=== PATIENT | male | born 1960 | race African-American/Black ===

== ENCOUNTER 2017-08-09 02:49 | Inpatient (IN) | payer BC, MEDICARE ==
[~2017-08-09] VITALS: Ht 175.3 cm; Wt 84.7 kg
[2017-08-09] VITALS (7 sets, daily range): BP systolic 124–151; BP diastolic 71–81; PULSE 68–91; RESP 12–18; TEMP 97.8–98.6; O2SAT 97–99
[2017-08-09] MEDS ORDERED: RENATAB6 PO (04:00)
[2017-08-09] MEDS ORDERED: LEVO50TA4 PO (04:00)
[2017-08-09] MEDS ORDERED: ATOR10TA15 PO (04:00)
[2017-08-09] MEDS ORDERED: SODIUM CHLOR 0.9% 1000 ML INJ 1,000 ML IV ONE (04:10)
[2017-08-09 04:39] LABS: AUTOMATED NEUTROPHIL # 3.1 TH/MM3 (1.8-7.7); BASOPHIL % 0.6 % (0.0-2.0); EOSINOPHIL # 0.4 TH/MM3 (0-0.4); EOSINOPHIL % 5.9 % (0.0-4.0); HEMATOCRIT 33.5 % (39.0-51.0); HEMOGLOBIN 11.1 GM/DL (13.0-17.0); LYMPH % 35.4 % (9.0-44.0); LYMPHOCYTE # 2.2 TH/MM3 (1.0-4.8); MEAN CELL VOLUME 91.1 FL (80.0-100.0); MEAN CORPUSCULAR HEMOGLOBIN 30.2 PG (27.0-34.0); MEAN CORPUSCULAR HGB CONC 33.1 % (32.0-36.0); MEAN PLATELET VOLUME 7.8 FL (7.0-11.0); MONO % 7.9 % (0.0-8.0); MONOCYTE # 0.5 TH/MM3 (0-0.9); NEUT % 50.2 % (16.0-70.0); PLATELET COUNT 174 TH/MM3 (150-450); RED BLOOD COUNT 3.68 MIL/MM3 (4.50-5.90); RED CELL DISTRIBUTION WIDTH 16.5 % (11.6-17.2); WHITE BLOOD COUNT 6.1 TH/MM3 (4.0-11.0)
[2017-08-09 04:53] LABS: PROTHROMBIN TIME - PATIENT 10.6 SEC (9.8-11.6)
--- NOTE | 2017-08-09 04:57 | HHI.HP ---
HPI Service [facility] Hospitalists . Primary Care Physician Non-Staff . Admission Diagnosis ESRD/Renal Transplant . Diagnoses: (1) ESRD (end stage renal disease) on dialysis Chief Complaint: ESRD - here for kidney transplant Travel History International Travel<30 Days: No Contact w/Intl Traveler <30 Da: No History of Present Illness Mr. Posadas is a 56 year-old male with a history of ESRD secondary to sequential bilateral nephrectomy due to renal cell carcinoma, previous history of hypertension, secondary hyperparathyroidism, hypothyroidism following partial thyroidectomy for benign thyroid nodule, history of colon polyps, and hyperlipidemia who presents to [facility] for possible renal transplantation by Dr. Sheriff. The patient is seen in his hospital room with his at the bedside. He denies any pain, chest pain, shortness of breath, fevers, chills, nausea, vomiting, or diarrhea. He is eagerly awaiting news of whether or not the transplantation is going to proceed. Review of Systems Except as stated in HPI: all other systems reviewed are Neg Past Family Social History Past Medical History End-stage renal disease Renal cell carcinoma Hypertension history -takes no medications for this and states that his hypertension resolved after starting dialysis Secondary hyperparathyroidism Hypothyroidism History of colon polyps with clean colonoscopy 1-2 years ago Hyperlipidemia . Past Surgical History Sequential bilateral nephrectomies -first in January 2016 and then the second one was in July 2016 Vasectomy AV fistula left arm Umbilical hernia repair as a child Inguinal hernia repair as a teen Partial thyroidectomy for benign thyroid nodule Peritoneal catheter placed in 2015 and also removed in 2016 secondary to infection . Reported Medications Reported Meds & Active Scripts Active Reported Levothyroxine (Levothyroxine Sodium) 50 Mcg Tab 50 Mcg PO DAILY Vanita-Lam Rx (B-Complex W/ C & Folic Acid) 1 Tab 1 Tab PO DAILY Atorvastatin (Atorvastatin Calcium) 10 Mg Tab 10 Mg PO HS . Allergies: Coded Allergies: No Known Allergies (Unverified , 07/30/17) Family History Denies family history of renal disease Father age 75 with prostate cancer Paternal grandmother with colon cancer Maternal grandmother with cancer of unknown etiology, in her 90s . Social History Tobacco: Denies ever smoking Alcohol: Denies Illicit Drugs: Denies . Physical Exam Vital Signs Vital Signs Date Time Temp Pulse Resp B/P (MAP) Pulse Ox O2 Delivery O2 Flow Rate FiO2 08/09/17 04:00 98.6 71 16 124/73 (90) 98 Physical Exam GENERAL: This is a very pleasant, well-nourished, well-developed patient, in no apparent distress. SKIN: No rashes, ecchymoses or lesions. Cool and dry. HEAD: Atraumatic. Normocephalic. EYES: No scleral icterus. No injection or drainage. ENT: Nose without bleeding, purulent drainage. NECK: Trachea midline. No JVD or lymphadenopathy. CARDIOVASCULAR: Regular rate and rhythm without murmurs, gallops, or rubs. Left AV fistula with positive bruit and thrill. RESPIRATORY: Clear to auscultation. Breath sounds equal bilaterally. No wheezes , rales, or rhonchi. GASTROINTESTINAL: Abdomen soft, non-tender, nondistended. No guarding. MUSCULOSKELETAL: Extremities without clubbing, cyanosis, or edema. No calf tenderness. NEUROLOGICAL: Awake and alert. Motor and sensory grossly within normal limits. Normal speech. . Laboratory Laboratory Tests Test 08/09/17 04:20 White Blood Count 6.1 Red Blood Count 3.68 Hemoglobin 11.1 Hematocrit 33.5 Mean Corpuscular Volume 91.1 Mean Corpuscular Hemoglobin 30.2 Mean Corpuscular Hemoglobin Concent 33.1 Red Cell Distribution Width 16.5 Platelet Count 174 Mean Platelet Volume 7.8 Neutrophils (%) (Auto) 50.2 Lymphocytes (%) (Auto) 35.4 Monocytes (%) (Auto) 7.9 Eosinophils (%) (Auto) 5.9 Basophils (%) (Auto) 0.6 Neutrophils # (Auto) 3.1 Lymphocytes # (Auto) 2.2 Monocytes # (Auto) 0.5 Eosinophils # (Auto) 0.4 Basophils # (Auto) 0.0 CBC Comment DIFF FINAL Differential Comment Prothrombin Time 10.6 Prothromb Time International Ratio 1.0 Activated Partial Thromboplast Time 24.9 Result Diagram: 08/09/17 0310 Caprini VTE Risk Assessment Caprini VTE Risk Assessment: Mod/High Risk (score >= 2) Caprini Risk Assessment Model Point Value = 1 Point Value = 2 Point Value = 3 Point Value = 5 Age 41-60 Minor surgery BMI > 25 kg/m2 Swollen legs Varicose veins or History of unexplained or recurrent spontaneous Oral contraceptives or hormone replacement Sepsis (< 1 month) Serious lung disease, including pneumonia (< 1 month) Abnormal pulmonary function Acute myocardial infarction Congestive heart failure (< 1 month) History of inflammatory bowel disease Medical patient at bed rest Age 61-74 Arthroscopic surgery Major open surgery (> 45 min) Laparoscopic surgery (> 45 min) Malignancy Confined to bed (> 72 hours) Immobilizing plaster cast Central venous access Age >= 75 History of VTE Family history of VTE Factor V Leiden Prothrombin [id number] Lupus anticoagulant Anticardiolipin antibodies Elevated serum homocysteine Heparin-induced thrombocytopenia Other congenital or acquired thrombophilia Stroke (< 1 month) Elective arthroplasty Hip, pelvis, or leg fracture Acute spinal cord injury (< 1 month) Prophylaxis Regimen Total Risk Factor Score Risk Level Prophylaxis Regimen 0-1 Low Early ambulation 2 Moderate Order ONE of the following: *Sequential Compression Device (SCD) *Heparin 5000 units SQ BID 3-4 Higher Order ONE of the following medications: *Heparin 5000 units SQ TID *Enoxaparin/Lovenox 40 mg SQ daily (WT < 150 kg, CrCl > 30 mL/min) *Enoxaparin/Lovenox 30 mg SQ daily (WT < 150 kg, CrCl > 10-29 mL/min) *Enoxaparin/Lovenox 30 mg SQ BID (WT < 150 kg, CrCl > 30 mL/min) AND/OR *Sequential Compression Device (SCD) 5 or more Highest Order ONE of the following medications: *Heparin 5000 units SQ TID (Preferred with Epidurals) *Enoxaparin/Lovenox 40 mg SQ daily (WT < 150 kg, CrCl > 30 mL/min) *Enoxaparin/Lovenox 30 mg SQ daily (WT < 150 kg, CrCl > 10-29 mL/min) *Enoxaparin/Lovenox 30 mg SQ BID (WT < 150 kg, CrCl > 30 mL/min) AND *Sequential Compression Device (SCD) Assessment and Plan Problem List: (1) ESRD (end stage renal disease) on dialysis ICD Code: N18.6 - End stage renal disease; Z99.2 - Dependence on renal dialysis Assessment and Plan Mr. Posadas is a 56 year-old male with a history of ESRD secondary to sequential bilateral nephrectomy due to renal cell carcinoma, previous history of hypertension, secondary hyperparathyroidism, hypothyroidism following partial thyroidectomy for benign thyroid nodule, history of colon polyps, and hyperlipidemia who presents to [facility] for possible renal transplantation by Dr. Sheriff. ESRD here for possible renal transplant - Dr. Sheriff to manage renal transplant - patient receives hemodialysis [id number] - is due today for HD - consult nephrology - Dr. Verdugo hypothyroidism - continue home Synthroid hyperlipidemia - continue home atorvastatin DVT prophylaxis - SCDs/TEDs - chemoprophylaxis contraindicated pre-operatively Discussed Condition With Patient, RN, and Dr. Schwab . Physician Certification 2 Midnight Certification Type: Admission for Inpatient Services Order for Inpatient Services The services are ordered in accordance with Medicare regulations or non- Medicare payer requirements, as applicable. In the case of services not specified as inpatient-only, they are appropriately provided as inpatient services in accordance with the 2-midnight benchmark. Estimated LOS (days): 4 days is the estimated time the patient will need to remain in the hospital, assuming treatment plan goals are met and no additional complications. Post-Hospital Plan: Not yet determined Angelita Bobo Aug 09, 2017 04:57
[2017-08-09 05:13] LABS: ALT (GPT) 12 U/L (12-78)
[2017-08-09 05:14] LABS: ALBUMIN 3.4 GM/DL (3.4-5.0); AST (GOT) 15 U/L (15-37); BICARBONATE 29.8 MEQ/L (21.0-32.0); BLOOD UREA NITROGEN 73 MG/DL (7-18); CHLORIDE 97 MEQ/L (98-107); GLOMERULAR FILTRATION RATE 4 ML/MIN (>89); GLUCOSE,RANDOM 86 MG/DL (74-106); SODIUM (NA) 140 MEQ/L (136-145)
[2017-08-09 05:15] LABS: ALKALINE PHOSPHATASE 56 U/L (45-117); TOTAL BILIRUBIN ADULT 0.4 MG/DL (0.2-1.0); TOTAL PROTEIN 7.7 GM/DL (6.4-8.2)
[2017-08-09] MEDS: LEVOTHYROXINE SODIUM 50 MCG TAB PO SCH (06:27)
[2017-08-09] MEDS ORDERED: GENTAMICIN SULFATE 80 MG/2 ML VIAL ONE (07:59)
--- NOTE | 2017-08-09 08:57 | PD.CONS ---
History of Present Illness Service Transplant surgery Consult Requested By Angelita JERONIMO Reason for Consult Admit for possible donor renal transplant Primary Care Physician Non-Staff Diagnoses: History of Present Illness Patient with ESRD. S/p bnilateral nephrectomies due to cancer. Review of Systems Except as stated in HPI: all other systems reviewed are Neg Anuric Past Family Social History Allergies: Coded Allergies: No Known Allergies (Unverified , 07/30/17) Past Medical History sequential bilateral renal cancer. ESRD. hypothyroid. secondary hyperparathyroid. colon polyps. hyperlipidemia. Past Surgical History Right nephrectomy. Left nephrectomy. Right inguinal hernia repair as a child. partial thyroidectomy. Family History father=prostate cance. paternal grandmother-colon cancer. Maternal grandmother- cancer (type unknown) Social History No tob, occ etoh, no illicit drugs. Physical Exam Vital Signs Vital Signs Date Time Temp Pulse Resp B/P (MAP) Pulse Ox O2 Delivery O2 Flow Rate FiO2 08/09/17 04:00 98.6 71 16 124/73 (90) 98 08/09/17 04:00 68 Physical Exam GENERAL: This is a well-nourished, well-developed patient, in no apparent distress. SKIN: No rashes, ecchymoses or lesions. Cool and dry. HEAD: Atraumatic. Normocephalic. No temporal or scalp tenderness. EYES: Pupils equal round and reactive. Extraocular motions intact. No scleral icterus. No injection or drainage. ENT: Nose without bleeding, purulent drainage or septal hematoma. Throat without erythema, tonsillar hypertrophy or exudate. Uvula midline. Airway patent. NECK: Trachea midline. No JVD or lymphadenopathy. Supple, nontender, no meningeal signs. CARDIOVASCULAR: Regular rate and rhythm without murmurs, gallops, or rubs. No carotid bruits. RESPIRATORY: Clear to auscultation. Breath sounds equal bilaterally. No wheezes , rales, or rhonchi. GASTROINTESTINAL: Abdomen soft, non-tender, nondistended. No hepato-splenomegaly , or palpable masses. No guarding. MUSCULOSKELETAL: Extremities without clubbing, cyanosis, or edema. No joint tenderness, effusion, or edema noted. No calf tenderness. Negative Homans sign bilaterally. Left arm AVF. Palppable fem/ DP/PT pulses NEUROLOGICAL: Awake and alert. Cranial nerves II through XII intact. Motor and sensory grossly within normal limits. Five out of 5 muscle strength in all muscle groups. Normal speech. Laboratory Laboratory Tests Test 08/09/17 04:20 White Blood Count 6.1 Red Blood Count 3.68 Hemoglobin 11.1 Hematocrit 33.5 Mean Corpuscular Volume 91.1 Mean Corpuscular Hemoglobin 30.2 Mean Corpuscular Hemoglobin Concent 33.1 Red Cell Distribution Width 16.5 Platelet Count 174 Mean Platelet Volume 7.8 Neutrophils (%) (Auto) 50.2 Lymphocytes (%) (Auto) 35.4 Monocytes (%) (Auto) 7.9 Eosinophils (%) (Auto) 5.9 Basophils (%) (Auto) 0.6 Neutrophils # (Auto) 3.1 Lymphocytes # (Auto) 2.2 Monocytes # (Auto) 0.5 Eosinophils # (Auto) 0.4 Basophils # (Auto) 0.0 CBC Comment DIFF FINAL Differential Comment Prothrombin Time 10.6 Prothromb Time International Ratio 1.0 Activated Partial Thromboplast Time 24.9 Blood Urea Nitrogen 73 Creatinine 16.90 Random Glucose 86 Total Protein 7.7 Albumin 3.4 Calcium Level 9.0 Alkaline Phosphatase 56 Aspartate Amino Transf (AST/SGOT) 15 Alanine Aminotransferase (ALT/SGPT) 12 Total Bilirubin 0.4 Sodium Level 140 Potassium Level 5.1 Chloride Level 97 Carbon Dioxide Level 29.8 Anion Gap 13 Estimat Glomerular Filtration Rate 4 Result Diagram: 08/09/1741908/09/17419 Assessment and Plan Problem List: (1) ESRD (end stage renal disease) on dialysis ICD Codes: N18.6 - End stage renal disease; Z99.2 - Dependence on renal dialysis (2) CKD stage 5 secondary to hypertension ICD Codes: I12.0 - Hypertensive chronic kidney disease with stage 5 chronic kidney disease or end stage renal disease; N18.5 - Chronic kidney disease, stage 5 Assessment and Plan CMV+/ EBV+ patient with ESRD due to hypertension. S/p bilateral nephrectomies. Anuric since 2016. Presents for possible donor renal transplant from a DCD donor. Joe Sheriff Jr., MD Aug 09, 2017 08:57
[2017-08-09] MEDS ORDERED: methylPREDNISolone SO SUCC INJ 500 MG in SODIUM CHLORIDE 0.9% INJ 100 ML IV ONE (09:00)
[2017-08-09] MEDS ORDERED: MYCOPHENOLATE MOFETIL 500 MG TAB PO SCH (09:00)
[2017-08-09] MEDS ORDERED: ceFAZolin 2 GM PREMIX 50 ML IV SCH (09:00)
[2017-08-09] MEDS ORDERED: [UNRECOGNIZED DRUG - OTHER] XX PRN (09:15)
--- NOTE | 2017-08-09 09:57 | RADRPT ---
EXAM DATE: 08/09/2017 9:29 AM EDT AGE/SEX: 56 years / Male INDICATIONS: Evaluate for pneumonia, pneumothorax, or any communicable disease. Pre op kidney transp lant. CLINICAL DATA: This is the patient's initial encounter. Patient reports that signs and symptoms have been present for 1 day and indicates a pain score of 0/10. MEDICAL/SURGICAL HISTORY: Renal disease. None. COMPARISON: No prior exams available for comparison. FINDINGS: PA and lateral views of the chest demonstrate the lungs to be symmetrically aerated without evidence of mass, infiltrate or effusion. The cardiomediastinal contours are unremarkable. Osseous structures are intact. CONCLUSION: Negative examination. Electronically signed by: Robert Peguero MD 08/09/2017 9:56 AM EDT
--- NOTE | 2017-08-09 10:14 | PD.CONS ---
HPI Service Nephrology Consult Requested By Dr. Sheriff Reason for Consult ESRD for kidney transplant Primary Care Physician Non-Staff History of Present Illness Patient is a 56-year-old -[place] male history of renal cell cancer status post bilateral nephrectomy, here for kidney transplant, patient was evaluated and was placed on the waiting list, he had his dialysis done last Sunday, he does not gain too much weight and he said on average ultrafiltration is about 2.3-2.5, denies any shortness of breath, any nausea or vomiting, any diarrhea, any cough is feeling fine. Review of Systems Constitutional: DENIES: Diaphoretic episodes, Fatigue, Fever, Weight gain, Weight loss, Chills, Dizziness, Change in appetite, Night Sweats Endocrine: DENIES: Heat/cold intolerance, Polydipsia, Polyuria, Polyphagia Eyes: DENIES: Blurred vision, Diplopia, Eye inflammation, Eye pain, Vision loss , Photosensitivity, Double Vision Ears, nose, mouth, throat: DENIES: Tinnitus, Hearing loss, Vertigo, Nasal discharge, Oral lesions, Throat pain, Hoarseness, Ear Pain, Running Nose, Epistaxis, Sinus Pain, Toothache, Odynophagia Respiratory: DENIES: Apneas, Cough, Snoring, Wheezing, Hemoptysis, Sputum production, Shortness of breath Cardiovascular: DENIES: Chest pain, Palpitations, Syncope, Dyspnea on Exertion , PND, Lower Extremity Edema, Orthopnea, Claudication Gastrointestinal: DENIES: Abdominal pain, Black stools, Bloody stools, Constipation, Diarrhea, Nausea, Vomiting, Difficulty Swallowing, Anorexia Genitourinary: COMPLAINS OF: Urinary frequency (anuria) Musculoskeletal: DENIES: Joint pain, Muscle aches, Stiffness, Joint Swelling, Back pain, Neck pain Integumentary: DENIES: Abnormal pigmentation, Nail changes, Pruritus, Rash Hematologic/lymphatic: DENIES: Bruising, Lymphadenopathy Immunologic/allergic: DENIES: Eczema, Urticaria Neurologic: DENIES: Abnormal gait, Headache, Localized weakness, Paresthesias, Seizures, Speech Problems, Tremor, Poor Balance Psychiatric: DENIES: Anxiety, Confusion, Mood changes, Depression, Hallucinations, Agitation, Suicidal Ideation, Homicidal Ideation, Delusions Past Family Social History Allergies: Coded Allergies: No Known Allergies (Unverified , 07/30/17) Past Medical History Renal cell cancer status post bilateral nephrectomy Hypertension Anemia Polyps in colon Hypothyroid Hyperparathyroidism Past Surgical History Bilateral nephrectomy AV fistula Right inguinal hernia repair Partial thyroidectomy Reported Medications Reported Meds & Active Scripts Active Reported Levothyroxine (Levothyroxine Sodium) 50 Mcg Tab 50 Mcg PO DAILY Vanita-Lam Rx (B-Complex W/ C & Folic Acid) 1 Tab 1 Tab PO DAILY Atorvastatin (Atorvastatin Calcium) 10 Mg Tab 10 Mg PO HS Active Ordered Medications Current Medications Medications (Trade) Dose Ordered Sig/Errol Route Start Time Stop Time Status Last Admin Sodium Chloride 1,000 ml @ 40 mls/hr Q24H ONCE IV 08/09/17 04:10 08/10/17 04:09 (Lipitor) 10 mg HS PO 08/09/17 21:00 (Synthroid) 50 mcg DAILY@0600 PO 08/09/17 06:00 08/09/17 06:27 Cefazolin Sodium/ Dextrose 50 ml @ 100 mls/hr [employer]ING [employer]OV[employer] TE[employer]ER IV 08/09/17 09:00 08/13/17 08:59 Anti-Thymocyte Globulin (Rabbit) 105 mg/Sodium Chloride 500 ml @ 83.333 mls/ hr ONCE ONCE IV-CENTRAL 08/09/17 12:00 08/09/17 17:59 (StyleTechc Thymoglobulin Anapylaxis Kit) 1 UNSCH PRN XX 08/09/17 09:15 Family History Father history of prostate cancer Social History Denies smoking or alcohol use Physical Exam Vital Signs Vital Signs Date Time Temp Pulse Resp B/P (MAP) Pulse Ox O2 Delivery O2 Flow Rate FiO2 08/09/17 09:10 97.8 73 18 140/76 (97) 97 08/09/17 04:00 98.6 71 16 124/73 (90) 98 08/09/17 04:00 68 Physical Exam GENERAL: Well-nourished, well-developed patient. SKIN: Warm and dry. HEAD: Normocephalic. EYES: No scleral icterus. No injection or drainage. NECK: Supple, trachea midline. No JVD or lymphadenopathy. CARDIOVASCULAR: Regular rate and rhythm without murmurs, gallops, or rubs. RESPIRATORY: Breath sounds equal bilaterally. No accessory muscle use. GASTROINTESTINAL: Abdomen soft, non-tender, nondistended. EXTREMITIES: No cyanosis, or edema. NEUROLOGICAL: Awake, alert, and oriented x 3. Non-focal. Laboratory Laboratory Tests Test 08/09/17 04:20 White Blood Count 6.1 Red Blood Count 3.68 Hemoglobin 11.1 Hematocrit 33.5 Mean Corpuscular Volume 91.1 Mean Corpuscular Hemoglobin 30.2 Mean Corpuscular Hemoglobin Concent 33.1 Red Cell Distribution Width 16.5 Platelet Count 174 Mean Platelet Volume 7.8 Neutrophils (%) (Auto) 50.2 Lymphocytes (%) (Auto) 35.4 Monocytes (%) (Auto) 7.9 Eosinophils (%) (Auto) 5.9 Basophils (%) (Auto) 0.6 Neutrophils # (Auto) 3.1 Lymphocytes # (Auto) 2.2 Monocytes # (Auto) 0.5 Eosinophils # (Auto) 0.4 Basophils # (Auto) 0.0 CBC Comment DIFF FINAL Differential Comment Prothrombin Time 10.6 Prothromb Time International Ratio 1.0 Activated Partial Thromboplast Time 24.9 Blood Urea Nitrogen 73 Creatinine 16.90 Random Glucose 86 Total Protein 7.7 Albumin 3.4 Calcium Level 9.0 Alkaline Phosphatase 56 Aspartate Amino Transf (AST/SGOT) 15 Alanine Aminotransferase (ALT/SGPT) 12 Total Bilirubin 0.4 Sodium Level 140 Potassium Level 5.1 Chloride Level 97 Carbon Dioxide Level 29.8 Anion Gap 13 Estimat Glomerular Filtration Rate 4 Result Diagram: 08/09/17 0420 08/09/17 0420 Imaging Last Impressions Chest X-Ray 08/09/17 0000 Signed Impressions: CONCLUSION: Negative examination. Assessment and Plan Problem List: (1) ESRD (end stage renal disease) on dialysis ICD Codes: N18.6 - End stage renal disease; Z99.2 - Dependence on renal dialysis Plan: Patient has been cleared to get kidney transplant, electrolytes were reviewed and discussed with Dr. Sheriff, he has kidney available and is going to OR shortly We will continue to monitor him postoperatively He will received Thymoglobulin induction. Liya Verdugo MD Aug 09, 2017 10:14
[2017-08-09] MEDS ORDERED: HEPARIN SODIUM - IV 10,000 UNITS/10 ML VIAL ONE (10:56)
[2017-08-09] MEDS ORDERED: fentaNYL CITRATE 250 MCG/5 ML AMP ONE ×2 (11:39→14:33)
[2017-08-09] MEDS ORDERED: CISATRACURIUM BESYLATE 20 MG/10 ML VIAL ONE (11:49)
[2017-08-09] MEDS ORDERED: PROPOFOL 200 MG/20 ML AMP IV ONE (12:00)
[2017-08-09] MEDS ORDERED: SODIUM CHLORID 0.9% IV-CENTRAL ONE (12:00)
[2017-08-09] MEDS ORDERED: LIDOCAINE HCL 1% PF 5 ML SYRINGE OTHER ONE (12:00)
[2017-08-09] MEDS ORDERED: NEOSTIGMINE 5 MG/5 ML SYRINGE IV PUSH ONE (12:00)
[2017-08-09] MEDS ORDERED: ONDANSETRON HCL 4 MG/2 ML VIAL IV PUSH ONE (12:00)
[2017-08-09] MEDS ORDERED: ANTITHYMOCYTE GLOB IV-CENTRAL ONE (12:00)
[2017-08-09] MEDS ORDERED: GLYCOPYRROLATE 1 MG/5 ML SYRINGE IV PUSH ONE (12:00)
[2017-08-09] MEDS ORDERED: ePHEDrine/NS 25 MG/5 ML SYRINGE IV ONE (12:00)
[2017-08-09] MEDS ORDERED: PHENYLEPH/NS 1000 MCG/10 ML SYR IV ONE (12:00)
[2017-08-09] MEDS ORDERED: LACTATED RINGER'S 1000 ML IV PRN (12:30)
[2017-08-09] MEDS ORDERED: METOPROLOL TARTRATE 25 MG TAB PO PRN (12:30)
[2017-08-09] MEDS ORDERED: CHLORHEXIDINE GLUCONATE 2 % 1 PACK (2 CLOTHS) TOPICAL PRN (12:30)
[2017-08-09] MEDS ORDERED: POVIDONE IODINE 5% (ANTISEPSIS KIT) 4 APPLICATIONS EACH NARE PRN (12:30)
[2017-08-09] MEDS ORDERED: SODIUM CHLORID 0.9% 500 ML IV PRN (12:30)
[2017-08-09] MEDS ORDERED: FUROSEMIDE 20 MG/2 ML VIAL ONE (13:06)
[2017-08-09] MEDS ORDERED: MANNITOL INJ 50 ML ONE (13:07)
--- NOTE | 2017-08-09 14:41 | PD.OP ---
kidney transplant assist note Operative Report Date of Surgery: Aug 09, 2017 Preoperative Diagnosis: ESRD Postoperative Diagnosis: same Procedure: kidney transplantation Surgeon: Hockey Scout(s): Basil Dennison Operation and Findings: I assisted Dr. Sheriff in the implantation of the kidney allograft. My assistance included exposure of iliac vessels, vascular anastomoses of artery and vein, and implantation of ureteroneocystotomy. The details will be dictated by Dr. Sheriff. Basil Dennison MD Aug 09, 2017 14:41
[2017-08-09] MEDS ORDERED: SODIUM CHLOR 0.45% 1000 ML INJ 1,000 ML IV SCH (14:46)
[2017-08-09] MEDS ORDERED: RESP: ALBUTEROL 2.5 MG/IPRATROPIUM 0.5 MG NEB (PRN) INH (15:00)
[2017-08-09] MEDS ORDERED: diphenhydrAMINE HCL 50 MG/ML VIAL IV PUSH PRN (15:00)
[2017-08-09] MEDS ORDERED: oxyCODONE/ACETAMINOPHEN 5 MG/325 MG TAB PO PRN (15:00)
[2017-08-09] MEDS ORDERED: oxyCODONE/ACETAMINOPHEN 10 MG/325 MG TAB PO PRN (15:00)
[2017-08-09] MEDS ORDERED: NALOXONE HCL 0.4 MG/ML AMP IV PUSH PRN (15:00)
[2017-08-09] MEDS ORDERED: MORPHINE SULFATE 30 MG/30 ML PCA IV SCH (15:00)
[2017-08-09] MEDS ORDERED: diphenhydrAMINE HCL 25 MG CAP PO PRN (15:00)
[2017-08-09] MEDS: DEXT 5%-NACL 0.45% 1000 ML INJ 1,000 ML IV SCH ×2 (15:15→15:45)
[2017-08-09] MEDS ORDERED: DO NOT ADM ANY ANTICOAGULANT DRUGS PRN (15:15)
--- NOTE | 2017-08-09 15:38 | RADRPT ---
EXAM DATE: 08/09/2017 3:33 PM EDT AGE/SEX: 56 years / Male INDICATIONS: Central line placement. CLINICAL DATA: This is the patient's initial encounter. Patient reports that signs and symptoms have been present for 1 day and indicates a pain score of Nonresponsive. MEDICAL/SURGICAL HISTORY: . Renal disease. None. COMPARISON: No prior exams available for comparison. FINDINGS: Single view chest demonstrates the cardiac and mediastinal contours to be within normal limits. There is a right IJ central line in good position. The lungs are clear. The bony structures are intact. CONCLUSION: Central line good position. No pneumothorax identified. Electronically signed by: Corky Brooke MD 08/09/2017 3:37 PM EDT
[2017-08-09 15:50] LABS: AUTOMATED NEUTROPHIL # 9.1 TH/MM3 (1.8-7.7); BASOPHIL % 0.3 % (0.0-2.0); EOSINOPHIL % 0.3 % (0.0-4.0); HEMATOCRIT 25.4 % (39.0-51.0); HEMOGLOBIN 8.4 GM/DL (13.0-17.0); LYMPH % 0.3 % (9.0-44.0); MEAN CELL VOLUME 91.3 FL (80.0-100.0); MEAN CORPUSCULAR HEMOGLOBIN 30.1 PG (27.0-34.0); MEAN CORPUSCULAR HGB CONC 32.9 % (32.0-36.0); MEAN PLATELET VOLUME 7.9 FL (7.0-11.0); MONO % 0.9 % (0.0-8.0); MONOCYTE # 0.1 TH/MM3 (0-0.9); NEUT % 98.2 % (16.0-70.0); PLATELET COUNT 135 TH/MM3 (150-450); RED BLOOD COUNT 2.78 MIL/MM3 (4.50-5.90); RED CELL DISTRIBUTION WIDTH 16.1 % (11.6-17.2); WHITE BLOOD COUNT 9.3 TH/MM3 (4.0-11.0)
[2017-08-09] MEDS ORDERED: ALBUMIN 5% INJ 250 ML IV ONE (16:00)
[2017-08-09] MEDS ORDERED: ONDANSETRON INJ 8 MG in DEXTROSE 5% IN WATER INJ 50 ML IV PRN ×2 (16:00)
[2017-08-09] MEDS ORDERED: ONDANSETRON ODT 4 MG TAB PO PRN (16:00)
[2017-08-09] MEDS ORDERED: PROCHLORPERAZINE INJ 10 MG/2 ML VIAL IV PRN (16:15)
[2017-08-09 16:36] LABS: BICARBONATE 19.6 MEQ/L (21.0-32.0); CALCIUM 6.2 MG/DL (8.5-10.1); MAGNESIUM 1.6 MG/DL (1.5-2.5); PHOSPHORUS 2.2 MG/DL (2.5-4.9)
--- NOTE | 2017-08-09 16:37 | RADRPT ---
EXAM DATE: 08/09/2017 4:02 PM EDT AGE/SEX: 56 years / Male INDICATIONS: Post-op evaluation of transplanted kidney. CLINICAL DATA: This is the patient's initial encounter. Patient reports that signs and symptoms have been present for 1 day and indicates a pain score of 0/10. MEDICAL/SURGICAL HISTORY: Hypertension. Renal cell carcinoma. End stage renal disease.Hyperpara thyroidism. Hypothyroidism. Inguinal hernia repair. Bilateral nephrectomy. Renal transplant. Umbilic al hernia repair.Vasectomy.AV fistula left arm.Umbilical hernia repair. COMPARISON: No prior exams available for comparison. MEASUREMENTS: Transplant Kidney:__13.1 x 6.5 x 6.1 cm Location:__Right lower quadrant Arcuate Arteries Resistive Index: Upper - 0.71 Mid - Lower - 0.74 Main Renal Artery Velocity:__58 cm/sec Main Renal Vein:__Patent External Iliac Artery Velocity:__156 cm/sec External Iliac Vein:__Patent FINDINGS: Transplant Kidney: Normal cortical thickness and echotexture. No hydronephrosis, stone, or mass. N o peritransplant fluid collection. Urinary Bladder: Within normal limits given the degree of distension. CONCLUSION: 1. Negative examination. Normal-appearing renal transplant without evidence of hydronephrosis. 2. Normal arterial venous flow identified. Electronically signed by: Gamal Ramirez MD 08/09/2017 4:35 PM EDT
[2017-08-09] MEDS ORDERED: *morphine SULFATE 10 MG/ML PERIprocedure ONLY ONE (16:39)
[2017-08-09] MEDS ORDERED: EPINEPHrine HCL (1:10,000) 1 MG/10 ML SYRINGE ONE (17:07)
[2017-08-09] MEDS ORDERED: HYDROCORTISONE SOD SUCCINATE 100 MG VIAL ONE (17:07)
[2017-08-09 17:17] LABS: TOTAL PROTEIN 5.2 GM/DL (6.4-8.2)
--- NOTE | 2017-08-09 17:22 | PD.OP ---
Operative Report Preoperative Diagnosis: (1) ESRD (end stage renal disease) on dialysis (2) CKD stage 5 secondary to hypertension ESRD Postoperative Diagnosis: (1) ESRD (end stage renal disease) on dialysis (2) CKD stage 5 secondary to hypertension ESRD Procedure: donor kidney transplant to right iliac fossa Anesthesia: GETA Surgeon: Joe Sheriff [employer] Research Scientist(s): Dr Basil Dennison. Mark Dallas-Hardboard Grinder. Resident Surgeon: None Operation and Findings: Fluids: 1400 ml crystalloid UOP: None Drain: None Cold ischemic time: 8 hour 28 minutes Warm ischemic time: 38 minutes The kidney was brought into the room. It was on a perfusion pump. Appropriate organ, patient and ABO identification was performed as per protocol. The patient was brought to the operating room. Appropriate identification procedures were performed. While the anesthesia staff was intubating the patient and placing appropriate access lines. After the patient was intubated, in addition to central line placement, a 3 way Scherer catheter was placed. He was prepped and draped in usual sterile fashion. Of note, perioperative antibiotics were administered prior to the skin incision being made. TImeouts were performed asper protocol While that was being done, we turned our attention to the kidney. The kidney was taken off of the perfusion pump, using sterile technique. We then did our back table preparation. The kidney was kept in cold slush/ preservative solution The kidney had a single artery and vein, both of which seemed to be of good quality. There was also a long ureter with good periureteral tissue. After dissecting and discarding the connective tissue from around the artery and vein , with clips and ties placed on tissue that seemed c/w small branches. We then also dissected some of the excess tissue from around the ureter, while still leaving ample periureteral tissue. We reconstructed and used the vena cava as an extension for the renal vein, by stapling across the cava at both ends with a 45-white load stapler. We then checked the artery and vein for leaks using heparinized saline. No leaks were noted A biopsy site was noted on the upper pole that seemed to be sutured close. Of note, while I was doing the back table preparation with Mark Celena, Hardboard Grinder, Dr Basil Dennison, did the exposure of the right iliac fossa. He made an approx 10 inch oblique incision in the right lower quadrant He then dissected and exposed the iliac artery and vein. The epigastric vessels and the cord structures were identified and preserved. Please see his quality control assistant note for additional details. I joined him after he had done the exposure. 2000 iu of heparin was given. Using a Satinsky clamp to patially occlude the external iliac vein., we then did an end to side anastomosis of the renal vein to the external iliac vein. We then occluded the external iliac artery in a similar fashion and then did an end to side arterial anastomosis, utilizing the carrel patch that was present. After reperfusion, there were some minimal bleeding vessels that were idientified in the tissue surrounding the hilum and the proximal ureter. Hemostasis was secured with clips. The artery and vein had good flow with no venous distension noted.The bladder was then exposed, antibiotic solution was infused into it, then we opened the bladder, spatulated and the distal ureter and did an end to side savannah-ureterocystostomy over a 5 fr x 12 cm ureteral stent, using 5-0 PDS. We then placed 2 lembert sutures bringing tissue up and around the distal ureter for antireflux purposes. We then assessed and secured hemostasis.The fascia was closed with #1 PDS. Micah' s layer was reapproximated with running 3-0 vicryl. Then the skin was closed with running 4-0 monocryl. This was done by Mark Dallas, Hardboard Grinder. A Moisés dressing was applied. All sponge and instrument counts were reported as correct. Joe Sheriff Jr., MD Aug 09, 2017 17:22
[2017-08-09 17:28] LABS: CALCIUM-PROTEIN CORRECTED 7.1 MG/DL (8.5-10.1); CREATININE 13.35 MG/DL (0.60-1.30)
[2017-08-09] MEDS ORDERED: FUROSEMIDE 40 MG/4 ML VIAL IV PUSH SCH (17:30)
--- NOTE | 2017-08-09 18:13 | EKG ---
Date Performed: 08/09/2017 Time Performed: 05:00:06 PTAGE: 56 years EKG: Sinus rhythm Normal ECG NO PREVIOUS TRACING DOCTOR: Catherine Vu Interpretating Date/Time 08/09/2017 18:10:40
[2017-08-09] MEDS ORDERED: ALBUMIN 5% INJ 500 ML IV ONE (18:15)
[2017-08-09] MEDS ORDERED: CALCIUM CHLORIDE INJ 1 GM in SODIUM CHLORIDE 0.9% INJ 100 ML IV ONE (19:15)
[2017-08-09] MEDS ORDERED: FUROSEMIDE 100 MG/10 ML VIAL IV PUSH ONE (19:15)
[2017-08-09] MEDS ORDERED: PATIROMER CALCIUM SORBITEX 16.8 GM PKT PO SCH (19:30)
[2017-08-09] MEDS: ATORVASTATIN 10 MG TAB PO SCH (21:00)
[2017-08-09] MEDS: PCA - TOTAL MG MORPHINE DELIVERED PER SHIFT SCH (22:00)
[2017-08-10] VITALS (11 sets, daily range): BP systolic 105–139; BP diastolic 56–68; PULSE 81–99; RESP 14–22; TEMP 97.9–99.1; O2SAT 96–99
[2017-08-10 05:20] LABS: BASOPHIL % 0.3 % (0.0-2.0); HEMATOCRIT 25.8 % (39.0-51.0); HEMOGLOBIN 8.5 GM/DL (13.0-17.0); LYMPH % 0.4 % (9.0-44.0); LYMPHOCYTE # 0.1 TH/MM3 (1.0-4.8); MEAN CELL VOLUME 91.2 FL (80.0-100.0); MEAN CORPUSCULAR HEMOGLOBIN 30.1 PG (27.0-34.0); MEAN CORPUSCULAR HGB CONC 33.1 % (32.0-36.0); MEAN PLATELET VOLUME 8.2 FL (7.0-11.0); MONO % 5.3 % (0.0-8.0); MONOCYTE # 0.8 TH/MM3 (0-0.9); PLATELET COUNT 130 TH/MM3 (150-450); RED BLOOD COUNT 2.83 MIL/MM3 (4.50-5.90); RED CELL DISTRIBUTION WIDTH 16.5 % (11.6-17.2); WHITE BLOOD COUNT 14.9 TH/MM3 (4.0-11.0)
[2017-08-10] MEDS: PCA - TOTAL MG MORPHINE DELIVERED PER SHIFT SCH ×3 (06:00→22:00)
[2017-08-10] MEDS: LEVOTHYROXINE SODIUM 50 MCG TAB PO SCH (06:10)
[2017-08-10] MEDS: MYCOPHENOLATE MOFETIL 500 MG TAB PO SCH ×2 (06:10→18:27)
[2017-08-10 06:18] LABS: BICARBONATE 21.7 MEQ/L (21.0-32.0); MAGNESIUM 2.1 MG/DL (1.5-2.5); PHOSPHORUS 3.1 MG/DL (2.5-4.9)
[2017-08-10 06:19] LABS: CREATININE 18.45 MG/DL (0.60-1.30)
[2017-08-10] MEDS ORDERED: SODIUM CHLOR 0.9% 1000 ML INJ 1,000 ML OTHER PRN ×2 (06:43)
[2017-08-10] MEDS ORDERED: CALCIUM CHLORIDE 10% SOLN 1 GRAM/10 ML SYR ONE (06:43)
[2017-08-10] MEDS ORDERED: SODIUM CHLOR 0.9% 1000 ML INJ 1,000 ML IV PRN (06:43)
[2017-08-10] MEDS ORDERED: DEXTROSE 50% IN WATER 50 ML SYRINGE ONE (06:44)
[2017-08-10] MEDS ORDERED: HEPARIN SODIUM - IV 10,000 UNITS/10 ML VIAL IV FLUSH PRN (06:45)
[2017-08-10] MEDS ORDERED: GELATIN 12 MM/7 MM FOAM TOP PRN (06:45)
[2017-08-10] MEDS ORDERED: MANNITOL 12.5 GM/50 ML VIAL IV PRN (06:45)
[2017-08-10] MEDS ORDERED: NITROGLYCERIN 0.4 MG SL 25 TABS/BTL SL PRN (06:45)
[2017-08-10] MEDS ORDERED: EPOETIN ALFA 10,000 UNITS/ML VIAL IV PUSH PRN (06:45)
[2017-08-10] MEDS ORDERED: ONDANSETRON HCL 4 MG/2 ML VIAL IV PUSH PRN (06:45)
[2017-08-10] MEDS ORDERED: ACETAMINOPHEN 325 MG TAB PO PRN (06:45)
[2017-08-10] MEDS ORDERED: SODIUM CHLORIDE 0.9% FLUSH 10 ML FLUSH IV FLUSH PRN (06:45)
[2017-08-10] MEDS ORDERED: ALBUMIN 25% INJ 100 ML IV PRN (06:45)
[2017-08-10] MEDS ORDERED: cloNIDine HCL 0.1 MG TAB PO PRN (06:45)
[2017-08-10] MEDS ORDERED: diphenhydrAMINE HCL 25 MG CAP PO PRN (06:45)
[2017-08-10] MEDS ORDERED: FUROSEMIDE 100 MG/10 ML VIAL IV PUSH ONE (07:00)
[2017-08-10] MEDS ORDERED: INSULIN HUMAN REGULAR 1,000 UNITS/10 ML VIAL IV PUSH ONE (07:30)
[2017-08-10] MEDS ORDERED: CALCIUM CHLORIDE 10% SOLN 1 GRAM/10 ML SYR IV ONE (07:30)
[2017-08-10] MEDS ORDERED: DEXTROSE 50% IN WATER 50 ML SYRINGE IV ONE (07:30)
--- NOTE | 2017-08-10 08:12 | RADRPT ---
EXAM DATE: 08/10/2017 8:03 AM EDT AGE/SEX: 56 years / Male INDICATIONS: Increased lab values post transplant 08/09/17. CLINICAL DATA: This is the patient's subsequent encounter. Patient reports that signs and symptoms h ave been present for 1 day and indicates a pain score of 1/10. MEDICAL/SURGICAL HISTORY: Hypertension. Renal cell carcinoma. End stage renal disease. Hyperpar athyroidism. Hypothyroidism. Inguinal hernia repair. Renal transplant. COMPARISON: [facility] [place], KIDNEY / TRANSPLANT, 08/09/2017. . MEASUREMENTS: Transplant Kidney:__11.2 x 6.7 x 6.2 Location:__Right lower quadrant Arcuate Arteries Resistive Index: Upper - 0.7 Mid - Lower - 0.7 Main Renal Artery Velocity:__74 Main Renal Vein:__Patent External Iliac Artery Velocity:__88 External Iliac Vein:__Patent FINDINGS: Transplant Kidney: Normal cortical thickness and echotexture. No hydronephrosis, stone, or mass. N o peritransplant fluid collection. Urinary Bladder: Within normal limits given the degree of distension. CONCLUSION: Satisfactory appearance of transplant kidney. Electronically signed by: Connor Galarza MD 08/10/2017 8:11 AM EDT
[2017-08-10] MEDS ORDERED: Custom Consult Pharmacy 1 EA OTHER SCH (08:15)
[2017-08-10] MEDS ORDERED: [UNRECOGNIZED DRUG - OTHER] XX PRN (08:15)
--- NOTE | 2017-08-10 08:38 | HHI.NPPN ---
Subjective History of Present Illness Patient 56-year-old with bilateral nephrectomy, ESRD who received a kidney transplant offer Interval History Kidney transplant done on 08/09/2017 Patient has delayed graft function Additional Remarks Patient is making urine so although low Objective Data Data 08/10/17 08/11/17 19:00 07:00 Output Total 40 ml Balance -40 ml Output Urine Total 40 ml Vital Signs Date Time Temp Pulse Resp B/P (MAP) Pulse Ox O2 Delivery O2 Flow Rate FiO2 08/10/17 08:17 131/68 (89) 08/10/17 08:09 98.0 81 16 131/68 (89) 97 08/10/17 07:00 90 08/10/17 06:00 16 08/10/17 03:00 81 08/10/17 03:00 98.4 81 14 108/56 (73) 97 08/09/17 23:00 98.2 81 16 130/71 (90) 98 08/09/17 23:00 91 08/09/17 22:00 16 08/09/17 20:20 98 Nasal Cannula 2.00 08/09/17 19:00 90 08/09/17 19:00 98.0 90 12 125/74 (91) 99 08/09/17 19:00 90 125/74 (91) 08/09/17 17:07 12 08/09/17 17:00 98.4 91 16 151/74 (99) 98 08/09/17 17:00 86 08/09/17 16:45 97.6 84 12 136/75 (95) 97 Nasal Cannula 2 08/09/17 16:30 85 12 132/75 (94) 97 Nasal Cannula 2 08/09/17 16:15 82 12 136/73 (94) 97 Nasal Cannula 2 08/09/17 16:00 83 12 142/70 (94) 97 Nasal Cannula 2 08/09/17 15:45 87 12 143/87 (105) 97 Nasal Cannula 2 08/09/17 15:30 90 12 124/65 (84) 96 Nasal Cannula 2 08/09/17 15:30 08/09/17 15:15 86 12 124/58 (80) 96 Nasal Cannula 4 08/09/17 15:13 97.4 89 12 131/60 (83) 96 Nasal Cannula 4 08/09/17 11:17 98.4 80 18 139/81 (100) 99 08/09/17 09:10 97.8 73 18 140/76 (97) 97 -: 08/10/17 0500 08/10/17 0550 Medication Review Current Medications Medications (Trade) Dose Ordered Sig/Errol Route Start Time Stop Time Status Last Admin (Lipitor) 10 mg HS PO 08/09/17 21:00 08/09/17 21:00 (Synthroid) 50 mcg DAILY@0600 PO 08/09/17 06:00 08/10/17 06:10 Cefazolin Sodium/ Dextrose 50 ml @ 100 mls/hr GLASS MAKER IV 08/09/17 09:00 08/13/17 08:59 08/09/17 11:38 (Lopressor) 25 mg GLASS MAKER PRN PO 08/09/17 12:30 08/12/17 12:29 (Betadine 5% Antisepsis Kit) 1 applic GLASS MAKER PRN EACH NARE 08/09/17 12:30 08/12/17 12:29 (Chlorhexidine 2% Cloth) 3 pack GLASS MAKER PRN TOPICAL 08/09/17 12:30 08/12/17 12:29 (Duoneb Neb) 1 ampule Q6HR NEB PRN INH 08/09/17 15:00 Dextrose/Sodium Chloride 1,000 ml @ 40 mls/hr Q24H IV 08/09/17 15:45 08/09/17 15:15 Sodium Chloride 1,000 ml @ 0 mls/hr Q0M IV 08/09/17 14:46 08/10/17 01:38 (Cellcept) 1,000 mg BID@ PO 08/10/17 06:00 08/10/17 06:10 (Protonix) 40 mg DAILY PO 08/10/17 09:00 (Tums Chew) 500 mg BID@,16 CHEW 08/09/17 16:00 (Colace) 100 mg BID PO 08/10/17 09:00 (Dulcolax Ec) 10 mg UNSCH PRN PO 08/12/17 15:00 (Dulcolax Supp) 10 mg UNSCH PRN RECTAL 08/12/17 15:00 (Zofran Odt) 4 mg Q6H PRN PO 08/09/17 16:00 (Benadryl) 25 mg Q6H PRN PO 08/09/17 15:00 (Benadryl Inj) 25 mg Q6H PRN IV PUSH 08/09/17 15:00 (Percocet 5-325 Mg) 1 tab Q4H PRN PO 08/09/17 15:00 (Percocet 10-325 Mg) 1 tab Q4H PRN PO 08/09/17 15:00 (Narcan Inj) 0.4 mg UNSCH PRN IV PUSH 08/09/17 15:00 (Morphine 1 Mg/ ml SUPERVISOR FLESHING) 30 mg UNSCH IV 08/09/17 15:00 08/09/17 17:07 SUPERVISOR FLESHING Dosage Infused (Pha) 1 Q8HR .XX 08/09/17 22:00 08/10/17 06:00 (Compazine Inj) 5 mg Q4H PRN IV 08/09/17 16:15 ([facility] [place] [facility] ALL NURSING DEPARTME... UNSCH PRN .XX 08/09/17 15:15 08/10/17 15:14 Sodium Chloride 1,000 ml @ 0 mls/hr Q0M PRN OTHER 08/10/17 06:43 (Heparin Inj) 8,000 units UNSCH PRN IV FLUSH 08/10/17 06:45 Sodium Chloride 1,000 ml @ 200 mls/hr Q5H PRN IV 08/10/17 06:43 Sodium Chloride 1,000 ml @ 0 mls/hr Q0M PRN OTHER 08/10/17 06:43 (Mannitol Inj) 12.5 gm UNSCH PRN IV 08/10/17 06:45 Albumin Human 100 ml @ 60 mls/hr UNSCH PRN IV 08/10/17 06:45 (NS Flush) 5 ml UNSCH PRN IV FLUSH 08/10/17 06:45 (Zofran Inj) 4 mg UNSCH PRN IV PUSH 08/10/17 06:45 (Tylenol) 650 mg UNSCH PRN PO 08/10/17 06:45 (Benadryl) 25 mg UNSCH PRN PO 08/10/17 06:45 (Nitrostat Sl) 0.4 mg UNSCH PRN SL 08/10/17 06:45 (Catapres) 0.1 mg UNSCH PRN PO 08/10/17 06:45 (Epogen Inj) 10,000 units UNSCH PRN IV PUSH 08/10/17 06:45 (Gelfoam 12 Mm/7 Mm Top) 1 foam UNSCH PRN TOP 08/10/17 06:45 (SoluMEDROL INJ) 125 mg ONCE ONCE IV PUSH 08/10/17 12:30 08/10/17 12:31 (Benadryl Inj) 50 mg ONCE ONCE IV PUSH 08/10/17 12:30 08/10/17 12:31 (Tylenol) 650 mg ONCE ONCE PO 08/10/17 12:30 08/10/17 12:31 Anti-Thymocyte Globulin (Rabbit) 105 mg/Sodium Chloride 500 ml @ 125 mls/hr ONCE ONCE IV-CENTRAL 08/10/17 13:00 08/10/17 16:59 ([facility] [place] Thymoglobulin Anapylaxis Kit) 1 UNSCH PRN XX 08/10/17 08:15 Pharmacy Profile Note 0 ml @ 0 mls/hr UNSCH OTHER 08/10/17 08:15 UNV Physical Exam Neck Neck Exam: Neck Supple Pulmonary Resp Exam: Clear Bilaterally, Breath Sounds Equal Cardiology CV Exam: Regular, Normal Sinus Rhythm Gastrointestinal/Abdomen GI Exam: Soft GI Remarks Postsurgical right lower abdominal incision Integumentary Skin Exam: Clear Extremeties Extremities Exam: No Edema Neurologic Neuro Exam: Alert, Awake Assessment/Plan Problem List: (1) Kidney transplant status, cadaveric ICD Codes: Z94.0 - Kidney transplant status Plan: DGF Patient has low urine output Seen during dialysis Solu-Medrol/Thymoglobulin second dose ordered Monitor for improvement (2) ESRD (end stage renal disease) on dialysis ICD Codes: N18.6 - End stage renal disease; Z99.2 - Dependence on renal dialysis Plan: Patient is seen postoperative day 1 has delayed graft function His potassium is 7.5 Received D50, insulin And not started on dialysis tolerating it well Ultrafiltration of 2-2.5 L as tolerated Patient did receive Lasix Urine output is low Continue more monitor his progress Discussed with Dr. Sheriff (3) Hyperkalemia ICD Codes: E87.5 - Hyperkalemia Plan: Calcium, D50, insulin given earlier and on hemodialysis Liya Verdugo MD Aug 10, 2017 08:38
--- NOTE | 2017-08-10 08:50 | HHI.PR ---
Subjective Remarks Had some transient nausea this AM (while getting IV calcium). None now. Thirsty. Objective Vital Signs Date Time Temp Pulse Resp B/P (MAP) Pulse Ox O2 Delivery O2 Flow Rate FiO2 08/10/17 08:17 131/68 (89) 08/10/17 08:09 98.0 81 16 131/68 (89) 97 08/10/17 07:00 90 08/10/17 06:00 16 08/10/17 03:00 81 08/10/17 03:00 98.4 81 14 108/56 (73) 97 08/09/17 23:00 98.2 81 16 130/71 (90) 98 08/09/17 23:00 91 08/09/17 22:00 16 08/09/17 20:20 98 Nasal Cannula 2.00 08/09/17 19:00 90 08/09/17 19:00 98.0 90 12 125/74 (91) 99 08/09/17 19:00 90 125/74 (91) 08/09/17 17:07 12 08/09/17 17:00 98.4 91 16 151/74 (99) 98 08/09/17 17:00 86 08/09/17 16:45 97.6 84 12 136/75 (95) 97 Nasal Cannula 2 08/09/17 16:30 85 12 132/75 (94) 97 Nasal Cannula 2 08/09/17 16:15 82 12 136/73 (94) 97 Nasal Cannula 2 08/09/17 16:00 83 12 142/70 (94) 97 Nasal Cannula 2 08/09/17 15:45 87 12 143/87 (105) 97 Nasal Cannula 2 08/09/17 15:30 90 12 124/65 (84) 96 Nasal Cannula 2 08/09/17 15:30 08/09/17 15:15 86 12 124/58 (80) 96 Nasal Cannula 4 08/09/17 15:13 97.4 89 12 131/60 (83) 96 Nasal Cannula 4 08/09/17 11:17 98.4 80 18 139/81 (100) 99 08/09/17 09:10 97.8 73 18 140/76 (97) 97 I/O 08/09/17 08/09/17 08/09/17 08/10/17 08/10/17 08/10/17 07:00 15:00 23:00 07:00 15:00 23:00 Intake Total 0 ml 2395 ml 563 ml Output Total 290 ml 57 ml 40 ml Balance 0 ml 2105 ml 506 ml -40 ml Intake Oral 0 ml IV Total 995 ml 563 ml Other 1400 ml Output Urine Total 40 ml 57 ml 40 ml Estimated Blood Loss 250 ml Result Diagram: 08/10/17 0500 08/10/17 0550 Objective Remarks Resp: CTAB CV: S1S2 Abd: hypoactive BS, soft. Min distended. Approp tender.Dressing dry/intact. Ext: Calves soft NT B Assessment and Plan Problem List: (1) ESRD (end stage renal disease) on dialysis ICD Codes: N18.6 - End stage renal disease; Z99.2 - Dependence on renal dialysis (2) CKD stage 5 secondary to hypertension ICD Codes: I12.0 - Hypertensive chronic kidney disease with stage 5 chronic kidney disease or end stage renal disease; N18.5 - Chronic kidney disease, stage 5 Assessment and Plan CMV+/ EBV+ patient with ESRD due to hypertension. S/p bilateral nephrectomies. Anuric since 2016. Presented for donor renal transplant from a DCD donor. Patient with hyperkalemia noted this AM. Cardioprotective meds given. Emergent HD intitiated. Had some transient nausea, but felt okay at time of patient multidisciplinary rounds. Thyma will be given early PM. otherwise continue current care. Joe Sheriff Jr., MD Aug 10, 2017 08:50
[2017-08-10] MEDS ORDERED: PATIROMER CALCIUM SORBITEX 16.8 GM PKT PO SCH (09:00)
[2017-08-10] MEDS: PANTOPRAZOLE SOD 40 MG DELAYED RELEASE TAB PO SCH (11:28)
[2017-08-10] MEDS: CALCIUM CARBONATE 500 MG CHEWABLE TAB CHEW SCH ×2 (11:28→16:00)
[2017-08-10] MEDS: DOCUSATE SODIUM 100 MG CAP PO SCH ×2 (11:32→20:16)
[2017-08-10] MEDS ORDERED: methylPREDNISolone SOD SUCC 125 MG/2 ML VIAL IV PUSH ONE (12:30)
[2017-08-10] MEDS ORDERED: diphenhydrAMINE HCL 50 MG/ML VIAL IV PUSH ONE (12:30)
[2017-08-10] MEDS ORDERED: ACETAMINOPHEN 325 MG TAB PO ONE (12:30)
[2017-08-10 12:35] LABS: AUTOMATED NEUTROPHIL # 13.3 TH/MM3 (1.8-7.7); BASOPHIL % 0.2 % (0.0-2.0); HEMATOCRIT 25.7 % (39.0-51.0); HEMOGLOBIN 8.6 GM/DL (13.0-17.0); LYMPH % 0.4 % (9.0-44.0); MEAN CELL VOLUME 89.9 FL (80.0-100.0); MEAN CORPUSCULAR HEMOGLOBIN 30.1 PG (27.0-34.0); MEAN CORPUSCULAR HGB CONC 33.5 % (32.0-36.0); MEAN PLATELET VOLUME 7.9 FL (7.0-11.0); MONO % 5.4 % (0.0-8.0); MONOCYTE # 0.8 TH/MM3 (0-0.9); PLATELET COUNT 128 TH/MM3 (150-450); RED BLOOD COUNT 2.85 MIL/MM3 (4.50-5.90); RED CELL DISTRIBUTION WIDTH 16.5 % (11.6-17.2); WHITE BLOOD COUNT 14.2 TH/MM3 (4.0-11.0)
[2017-08-10] MEDS ORDERED: SODIUM CHLORID 0.9% IV-CENTRAL ONE (13:00)
[2017-08-10] MEDS ORDERED: ANTITHYMOCYTE GLOB IV-CENTRAL ONE (13:00)
--- NOTE | 2017-08-10 14:44 | HHI.PR ---
Subjective Remarks The patient was seen in the morning today. He is getting dialysis. Says he feels tired. No pain. Feels some change in the morning however is not nauseated. Was able to eat without problems. No fever or chills. Urine was bloody nose clearing up. Some pain at the surgical site. Objective Vitals Vital Signs Date Time Temp Pulse Resp B/P (MAP) Pulse Ox O2 Delivery O2 Flow Rate FiO2 08/10/17 14:15 98.4 89 18 106/65 (79) 99 08/10/17 14:00 98.0 91 16 105/65 (78) 97 08/10/17 11:11 95 08/10/17 11:11 98.6 99 18 139/66 (90) 96 08/10/17 08:17 131/68 (89) 08/10/17 08:09 98.0 81 16 131/68 (89) 97 08/10/17 07:00 90 08/10/17 06:00 16 08/10/17 03:00 81 08/10/17 03:00 98.4 81 14 108/56 (73) 97 08/09/17 23:00 98.2 81 16 130/71 (90) 98 08/09/17 23:00 91 08/09/17 22:00 16 08/09/17 20:20 98 Nasal Cannula 2.00 08/09/17 19:00 90 08/09/17 19:00 98.0 90 12 125/74 (91) 99 08/09/17 19:00 90 125/74 (91) 08/09/17 17:07 12 08/09/17 17:00 98.4 91 16 151/74 (99) 98 08/09/17 17:00 86 08/09/17 16:45 97.6 84 12 136/75 (95) 97 Nasal Cannula 2 08/09/17 16:30 85 12 132/75 (94) 97 Nasal Cannula 2 08/09/17 16:15 82 12 136/73 (94) 97 Nasal Cannula 2 08/09/17 16:00 83 12 142/70 (94) 97 Nasal Cannula 2 08/09/17 15:45 87 12 143/87 (105) 97 Nasal Cannula 2 08/09/17 15:30 90 12 124/65 (84) 96 Nasal Cannula 2 08/09/17 15:30 08/09/17 15:15 86 12 124/58 (80) 96 Nasal Cannula 4 08/09/17 15:13 97.4 89 12 131/60 (83) 96 Nasal Cannula 4 I/O 08/09/17 08/09/17 08/09/17 08/10/17 08/10/17 08/10/17 07:00 15:00 23:00 07:00 15:00 23:00 Intake Total 0 ml 2395 ml 563 ml 0 ml Output Total 290 ml 57 ml 2590 ml Balance 0 ml 2105 ml 506 ml -2590 ml Intake Oral 0 ml 0 ml IV Total 995 ml 563 ml Other 1400 ml Output Urine Total 40 ml 57 ml 90 ml Hemodialysis 2500 ml Estimated Blood Loss 250 ml Result Diagram: 08/10/17 1219 08/10/17 0820 Imaging Last Impressions Renal Ultrasound 08/10/17 0000 Signed Impressions: CONCLUSION: Satisfactory appearance of transplant kidney. Chest X-Ray 08/09/17 0000 Signed Impressions: CONCLUSION: Central line good position. No pneumothorax identified. Objective Remarks GENERAL: This is a very pleasant, well-nourished, well-developed patient, in no apparent distress. CARDIOVASCULAR: Regular rate and rhythm without murmurs, gallops, or rubs. Left AV fistula with positive bruit and thrill. RESPIRATORY: Clear to auscultation. Breath sounds equal bilaterally. No wheezes , rales, or rhonchi. GASTROINTESTINAL: Abdomen soft, mild tenderness at the surgical site, dressing in place c/d/di, abd nondistended. No guarding. MUSCULOSKELETAL: Extremities without clubbing, cyanosis, or edema. No calf tenderness. NEUROLOGICAL: Awake and alert. Motor and sensory grossly within normal limits. Normal speech. Procedures donor kidney transplant to right iliac fossa by Dr Sheriff and Dr Dennison on 08/09/17 A/P Problem List: (1) ESRD (end stage renal disease) on dialysis ICD Code: N18.6 - End stage renal disease; Z99.2 - Dependence on renal dialysis Assessment and Plan Mr. Posadas is a 56 year-old male with a history of ESRD secondary to sequential bilateral nephrectomy due to renal cell carcinoma, previous history of hypertension, secondary hyperparathyroidism, hypothyroidism following partial thyroidectomy for benign thyroid nodule, history of colon polyps, and hyperlipidemia who presents to [facility] for renal transplantation by Dr. Sheriff. ESRD S/P donor kidney transplant to right iliac fossa by Dr Sheriff and Dr Dennison on 08/09/17 Hyperkalemia Hematuria, resolving Nausea, resolving Dr. Sheriff ff, continue management per renal transplant team Patient receives hemodialysis [id number]. Consult nephrology - Dr. Lucina paz Patient is receiving HD today 08/10. Continue HD per nephro recommendations. With hyperkalemia , received cardioprotective meds and emergent HD initiated. Antiemetics as need Hypothyroidism - continue home Synthroid Hyperlipidemia - continue home atorvastatin DVT prophylaxis - SCDs/TEDs - chemoprophylaxis per surgeon. Patient with hematuria after surgery hold chemical ppx at this time. Discussed Condition With Patient, nurse Reena Mckinley MD Aug 10, 2017 14:44
[2017-08-10] MEDS: DEXT 5%-NACL 0.45% 1000 ML INJ 1,000 ML IV SCH (17:12)
[2017-08-10 18:16] LABS: BICARBONATE 29.9 MEQ/L (21.0-32.0); CALCIUM 8.2 MG/DL (8.5-10.1); MAGNESIUM 1.9 MG/DL (1.5-2.5); PHOSPHORUS 3.8 MG/DL (2.5-4.9)
[2017-08-10] MEDS: TACROLIMUS 1 MG CAP PO SCH (18:27)
[2017-08-10 18:34] LABS: CREATININE 11.18 MG/DL (0.60-1.30)
[2017-08-10] MEDS: ATORVASTATIN 10 MG TAB PO SCH (20:16)
[2017-08-11] VITALS (8 sets, daily range): BP systolic 114–130; BP diastolic 62–78; PULSE 82–98; RESP 18–22; TEMP 97.8–98.9; O2SAT 92–99
[2017-08-11] MEDS: PCA - TOTAL MG MORPHINE DELIVERED PER SHIFT SCH ×3 (06:00→22:00)
[2017-08-11 06:10] LABS: AUTOMATED NEUTROPHIL # 6.7 TH/MM3 (1.8-7.7); BASOPHIL % 0.3 % (0.0-2.0); HEMATOCRIT 21.9 % (39.0-51.0); HEMOGLOBIN 7.3 GM/DL (13.0-17.0); LYMPH % 0.3 % (9.0-44.0); MEAN CELL VOLUME 90.9 FL (80.0-100.0); MEAN CORPUSCULAR HEMOGLOBIN 30.5 PG (27.0-34.0); MEAN CORPUSCULAR HGB CONC 33.6 % (32.0-36.0); MEAN PLATELET VOLUME 8.3 FL (7.0-11.0); MONO % 5.7 % (0.0-8.0); MONOCYTE # 0.4 TH/MM3 (0-0.9); NEUT % 93.7 % (16.0-70.0); PLATELET COUNT 91 TH/MM3 (150-450); RED BLOOD COUNT 2.41 MIL/MM3 (4.50-5.90); RED CELL DISTRIBUTION WIDTH 16.3 % (11.6-17.2); WHITE BLOOD COUNT 7.2 TH/MM3 (4.0-11.0)
[2017-08-11 06:43] LABS: % SATURATION IRON PROFILE 80.4 % (20-50); IRON (FE) 90 MCG/DL (65-175); TOTAL IRON BINDING CAPACITY 112 MCG/DL (250-450)
[2017-08-11] MEDS: LEVOTHYROXINE SODIUM 50 MCG TAB PO SCH (06:43)
[2017-08-11] MEDS: TACROLIMUS 1 MG CAP PO SCH ×2 (06:43→17:41)
[2017-08-11] MEDS: MYCOPHENOLATE MOFETIL 500 MG TAB PO SCH ×2 (06:43→17:41)
[2017-08-11 06:52] LABS: BICARBONATE 26.3 MEQ/L (21.0-32.0); CALCIUM 7.9 MG/DL (8.5-10.1); PHOSPHORUS 5.8 MG/DL (2.5-4.9)
[2017-08-11 07:24] LABS: CREATININE 13.81 MG/DL (0.60-1.30)
[2017-08-11] MEDS ORDERED: EPOETIN ALFA 4,000 UNITS/ML VIAL SQ ONE (08:15)
--- NOTE | 2017-08-11 08:24 | HHI.PR ---
Subjective Remarks No new c/o. No N/V Objective Vital Signs Date Time Temp Pulse Resp B/P (MAP) Pulse Ox O2 Delivery O2 Flow Rate FiO2 08/11/17 07:00 98.2 84 20 130/75 (93) 93 08/11/17 06:00 22 08/11/17 03:00 98.9 82 22 124/71 (88) 99 08/11/17 03:00 82 08/11/17 00:03 98.8 88 22 114/62 (79) 98 08/10/17 23:00 88 08/10/17 22:19 Nasal Cannula 2.00 08/10/17 22:00 22 08/10/17 19:00 89 08/10/17 19:00 97.9 89 22 109/62 (78) 99 08/10/17 19:00 89 109/62 (78) 08/10/17 15:00 90 08/10/17 15:00 99.1 87 16 106/63 (77) 99 08/10/17 14:15 98.4 89 18 106/65 (79) 99 08/10/17 14:00 98.0 91 16 105/65 (78) 97 08/10/17 14:00 16 08/10/17 12:00 96 Nasal Cannula 2.00 08/10/17 11:11 95 08/10/17 11:11 98.6 99 18 139/66 (90) 96 I/O 08/10/17 08/10/17 08/10/17 08/11/17 08/11/17 08/11/17 07:00 15:00 23:00 07:00 15:00 23:00 Intake Total 563 ml 0 ml 1695 ml 760 ml Output Total 57 ml 2598 ml 2550 ml 50 ml Balance 506 ml -2598 ml -855 ml 710 ml Intake Oral 0 ml 480 ml 240 ml IV Total 563 ml 1215 ml 520 ml Output Urine Total 57 ml 98 ml 50 ml 50 ml Hemodialysis 2500 ml 2500 ml Result Diagram: 08/11/1730 08/11/17 0530 Objective Remarks Resp - CTAB C -: S1S2 Abd - + BS, soft. Min distended. Approp tender. Dressing dry/intact. Ext - Calves soft NT B Assessment and Plan Problem List: (1) ESRD (end stage renal disease) on dialysis ICD Codes: N18.6 - End stage renal disease; Z99.2 - Dependence on renal dialysis (2) CKD stage 5 secondary to hypertension ICD Codes: I12.0 - Hypertensive chronic kidney disease with stage 5 chronic kidney disease or end stage renal disease; N18.5 - Chronic kidney disease, stage 5 Assessment and Plan CMV+/ EBV+ patient with ESRD due to hypertension. S/p bilateral nephrectomies. Anuric since 2017. Presented for donor renal transplant from a DCD donor. K up to 5.2. Will start veltassa and recheck labs at 1400. Patient feels well. + flatus. Hungry. hgb 7.3. Will recheck now and at 1400. No thymo today. otherwise continue current care. Joe Sheriff Jr., MD Aug 11, 2017 08:24
[2017-08-11] MEDS: PATIROMER CALCIUM SORBITEX 16.8 GM PKT PO SCH (09:00)
[2017-08-11 09:04] LABS: AUTOMATED NEUTROPHIL # 8.1 TH/MM3 (1.8-7.7); BASOPHIL % 0.4 % (0.0-2.0); EOSINOPHIL % 0.1 % (0.0-4.0); HEMATOCRIT 24.9 % (39.0-51.0); HEMOGLOBIN 8.2 GM/DL (13.0-17.0); LYMPH % 0.8 % (9.0-44.0); LYMPHOCYTE # 0.1 TH/MM3 (1.0-4.8); MEAN CELL VOLUME 91.1 FL (80.0-100.0); MEAN CORPUSCULAR HEMOGLOBIN 30.2 PG (27.0-34.0); MEAN CORPUSCULAR HGB CONC 33.1 % (32.0-36.0); MEAN PLATELET VOLUME 8.4 FL (7.0-11.0); MONO % 3.8 % (0.0-8.0); MONOCYTE # 0.3 TH/MM3 (0-0.9); NEUT % 94.9 % (16.0-70.0); PLATELET COUNT 100 TH/MM3 (150-450); RED BLOOD COUNT 2.74 MIL/MM3 (4.50-5.90); RED CELL DISTRIBUTION WIDTH 16.3 % (11.6-17.2); WHITE BLOOD COUNT 8.6 TH/MM3 (4.0-11.0)
[2017-08-11] MEDS: FUROSEMIDE 100 MG/10 ML VIAL IV PUSH SCH ×2 (09:23→20:33)
[2017-08-11] MEDS: CALCIUM CARBONATE 500 MG CHEWABLE TAB CHEW SCH ×2 (09:23→16:33)
[2017-08-11] MEDS: PANTOPRAZOLE SOD 40 MG DELAYED RELEASE TAB PO SCH (09:24)
[2017-08-11] MEDS: DOCUSATE SODIUM 100 MG CAP PO SCH ×2 (09:24→20:33)
--- NOTE | 2017-08-11 09:24 | HHI.PR ---
Subjective Remarks He is in the chair. Says he has some pain at the surgical site. Urine is clearing up. No fever chills overnight. No nausea vomiting was able to tolerate some food today. No chest pain or shortness of breath. Objective Vitals Vital Signs Date Time Temp Pulse Resp B/P (MAP) Pulse Ox O2 Delivery O2 Flow Rate FiO2 08/11/17 07:00 84 130/75 (93) 08/11/17 07:00 98.2 84 20 130/75 (93) 93 08/11/17 07:00 84 08/11/17 06:00 22 08/11/17 03:00 98.9 82 22 124/71 (88) 99 08/11/17 03:00 82 08/11/17 00:03 98.8 88 22 114/62 (79) 98 08/10/17 23:00 88 08/10/17 22:19 Nasal Cannula 2.00 08/10/17 22:00 22 08/10/17 19:00 89 08/10/17 19:00 97.9 89 22 109/62 (78) 99 08/10/17 19:00 89 109/62 (78) 08/10/17 15:00 90 08/10/17 15:00 99.1 87 16 106/63 (77) 99 08/10/17 14:15 98.4 89 18 106/65 (79) 99 08/10/17 14:00 98.0 91 16 105/65 (78) 97 08/10/17 14:00 16 08/10/17 12:00 96 Nasal Cannula 2.00 08/10/17 11:11 95 08/10/17 11:11 98.6 99 18 139/66 (90) 96 I/O 08/10/17 08/10/17 08/10/17 08/11/17 08/11/17 08/11/17 07:00 15:00 23:00 07:00 15:00 23:00 Intake Total 563 ml 0 ml 1695 ml 760 ml Output Total 57 ml 2598 ml 2550 ml 55 ml 5 ml Balance 506 ml -2598 ml -855 ml 705 ml -5 ml Intake Oral 0 ml 480 ml 240 ml IV Total 563 ml 1215 ml 520 ml Output Urine Total 57 ml 98 ml 50 ml 55 ml 5 ml Hemodialysis 2500 ml 2500 ml Result Diagram: 08/11/17 0844 08/11/17 0530 Imaging Last Impressions Renal Ultrasound 08/10/17 0000 Signed Impressions: CONCLUSION: Satisfactory appearance of transplant kidney. Chest X-Ray 08/09/17 0000 Signed Impressions: CONCLUSION: Central line good position. No pneumothorax identified. Objective Remarks GENERAL: This is a very pleasant, well-nourished, well-developed patient, in no apparent distress. CARDIOVASCULAR: Regular rate and rhythm without murmurs, gallops, or rubs. Left AV fistula with positive bruit and thrill. RESPIRATORY: Clear to auscultation. Breath sounds equal bilaterally. No wheezes , rales, or rhonchi. GASTROINTESTINAL: Abdomen soft, mild tenderness at the surgical site, dressing in place c/d/di, abd nondistended. No guarding. MUSCULOSKELETAL: Extremities without clubbing, cyanosis, or edema. No calf tenderness. NEUROLOGICAL: Awake and alert. Motor and sensory grossly within normal limits. Normal speech. Procedures donor kidney transplant to right iliac fossa by Dr Sheriff and Dr Dennison on 08/09/17 A/P Problem List: (1) ESRD (end stage renal disease) on dialysis ICD Code: N18.6 - End stage renal disease; Z99.2 - Dependence on renal dialysis Assessment and Plan Mr. Posadas is a 56 year-old male with a history of ESRD secondary to sequential bilateral nephrectomy due to renal cell carcinoma, previous history of hypertension, secondary hyperparathyroidism, hypothyroidism following partial thyroidectomy for benign thyroid nodule, history of colon polyps, and hyperlipidemia who presents to [facility] for renal transplantation by Dr. Sheriff. ESRD S/P donor kidney transplant to right iliac fossa by Dr Sheriff and Dr Dennison on 08/09/17 Hyperkalemia Hematuria, resolving Nausea, resolved Dr. Sheriff ff, continue management per renal transplant team Patient receives hemodialysis [id number]. Consult nephrology - Dr. Lucina paz Patient had HD 08/10. Continue HD per nephro recommendations. With hyperkalemia , received cardioprotective meds and emergent HD 08/10. Potassium still elevated at 5.2. Plan for Veltassa and recheck labs at 1400 if K is going up plan for hemodialysis. Antiemetics as need Hypothyroidism - continue home Synthroid Hyperlipidemia - continue home atorvastatin DVT prophylaxis - SCDs/TEDs - chemoprophylaxis per surgeon. Patient with hematuria after surgery hold chemical ppx at this time. Discussed Condition With Patient, ICU nurse Reena Mckinley MD Aug 11, 2017 09:24
[2017-08-11] MEDS ORDERED: predniSONE 20 MG TAB PO ONE (13:30)
--- NOTE | 2017-08-11 13:42 | HHI.NPPN ---
Subjective History of Present Illness Patient 56-year-old with bilateral nephrectomy, ESRD who received a kidney transplant offer Additional Remarks Oliguric. Had dialysis yesterday. Mild hyperkalemia is noted. Review of Systems General Constitutional: Fatigue Objective Data Data 08/11/17 08/12/17 19:00 07:00 Output Total 52 ml Balance -52 ml Output Urine Total 52 ml Vital Signs Date Time Temp Pulse Resp B/P (MAP) Pulse Ox O2 Delivery O2 Flow Rate FiO2 08/11/17 11:00 85 08/11/17 11:00 98.1 85 18 124/71 (88) 94 08/11/17 07:30 94 Nasal Cannula 2.00 08/11/17 07:00 84 130/75 (93) 08/11/17 07:00 98.2 84 20 130/75 (93) 93 08/11/17 07:00 84 08/11/17 06:00 22 08/11/17 03:00 98.9 82 22 124/71 (88) 99 08/11/17 03:00 82 08/11/17 00:03 98.8 88 22 114/62 (79) 98 08/10/17 23:00 88 08/10/17 22:19 Nasal Cannula 2.00 08/10/17 22:00 22 08/10/17 19:00 89 08/10/17 19:00 97.9 89 22 109/62 (78) 99 08/10/17 19:00 89 109/62 (78) 08/10/17 15:00 90 08/10/17 15:00 99.1 87 16 106/63 (77) 99 08/10/17 14:15 98.4 89 18 106/65 (79) 99 08/10/17 14:00 98.0 91 16 105/65 (78) 97 08/10/17 14:00 16 -: 08/11/17 0844 08/11/17 0530 Physical Exam General Appearance: Well Developed, Well Nourished, No Acute Distress Neck Neck Exam: Neck Supple Pulmonary Resp Exam: Clear Bilaterally, Breath Sounds Equal Cardiology CV Exam: Regular, Normal Sinus Rhythm Gastrointestinal/Abdomen GI Exam: Soft Integumentary Skin Exam: Clear Extremeties Extremities Exam: No Edema Neurologic Neuro Exam: Alert, Awake Assessment/Plan Problem List: (1) Kidney transplant status, cadaveric ICD Codes: Z94.0 - Kidney transplant status Plan: Delayed graft function. Immunosuppressives noted. Oliguric. Recommend dialysis. Repeat labs ordered by the surgeon. Veltassa ordered by surgery: it is not indicated for acute management of hyperkalemia. (2) Hyperkalemia ICD Codes: E87.5 - Hyperkalemia Plan: Monitor. Low potassium diet. Dialysis prn. Yazan Fernández MD Aug 11, 2017 13:42
[2017-08-11] MEDS ORDERED: PILL SPLITTER OTHER PRN (13:45)
[2017-08-11 17:03] LABS: BICARBONATE 26.7 MEQ/L (21.0-32.0); CALCIUM 8.5 MG/DL (8.5-10.1)
[2017-08-11 17:13] LABS: CREATININE 14.03 MG/DL (0.60-1.30)
[2017-08-11] MEDS: ATORVASTATIN 10 MG TAB PO SCH (20:33)
[2017-08-12] VITALS (12 sets, daily range): BP systolic 115–149; BP diastolic 67–85; PULSE 78–94; RESP 18–22; TEMP 97.6–98.3; O2SAT 95–100
[2017-08-12 05:34] LABS: AUTOMATED NEUTROPHIL # 7.6 TH/MM3 (1.8-7.7); BASOPHIL % 0.3 % (0.0-2.0); HEMATOCRIT 22.8 % (39.0-51.0); HEMOGLOBIN 7.7 GM/DL (13.0-17.0); LYMPH % 0.5 % (9.0-44.0); MEAN CELL VOLUME 88.6 FL (80.0-100.0); MEAN CORPUSCULAR HEMOGLOBIN 29.9 PG (27.0-34.0); MEAN CORPUSCULAR HGB CONC 33.7 % (32.0-36.0); MEAN PLATELET VOLUME 8.2 FL (7.0-11.0); MONO % 4.1 % (0.0-8.0); MONOCYTE # 0.3 TH/MM3 (0-0.9); NEUT % 95.1 % (16.0-70.0); PLATELET COUNT 98 TH/MM3 (150-450); RED BLOOD COUNT 2.57 MIL/MM3 (4.50-5.90); RED CELL DISTRIBUTION WIDTH 15.8 % (11.6-17.2)
[2017-08-12 05:59] LABS: BICARBONATE 24.7 MEQ/L (21.0-32.0); CALCIUM 8.6 MG/DL (8.5-10.1); PHOSPHORUS 5.1 MG/DL (2.5-4.9)
[2017-08-12] MEDS: PCA - TOTAL MG MORPHINE DELIVERED PER SHIFT SCH (06:00)
[2017-08-12 06:06] LABS: CREATININE 14.47 MG/DL (0.60-1.30)
[2017-08-12] MEDS: LEVOTHYROXINE SODIUM 50 MCG TAB PO SCH (06:20)
[2017-08-12] MEDS: TACROLIMUS 1 MG CAP PO SCH ×2 (06:20→20:43)
[2017-08-12] MEDS: MYCOPHENOLATE MOFETIL 500 MG TAB PO SCH ×2 (06:20→20:44)
[2017-08-12] MEDS: DOCUSATE SODIUM 100 MG CAP PO SCH ×2 (08:52→21:29)
[2017-08-12] MEDS: CALCIUM CARBONATE 500 MG CHEWABLE TAB CHEW SCH (08:52)
[2017-08-12] MEDS: FUROSEMIDE 100 MG/10 ML VIAL IV PUSH SCH ×2 (08:52→21:29)
[2017-08-12] MEDS: PATIROMER CALCIUM SORBITEX 16.8 GM PKT PO SCH (08:52)
[2017-08-12] MEDS: PANTOPRAZOLE SOD 40 MG DELAYED RELEASE TAB PO SCH (08:52)
--- NOTE | 2017-08-12 09:25 | HHI.PR ---
Subjective Remarks Feels much better. Potassium is better no need for dialysis.. Denies any chest pain or shortness of breath. Has some pain at the surgical site especially with moving. He was ambulating today. Urine is clear no more blood in the urine. Scherer is discontinued. Plan to monitor urine output and to do bladder scan after each voiding per kidney transplant Dr. Sheriff recommendations. Objective Vitals Vital Signs Date Time Temp Pulse Resp B/P (MAP) Pulse Ox O2 Delivery O2 Flow Rate FiO2 08/12/17 07:00 79 08/12/17 07:00 79 141/70 (93) 08/12/17 07:00 97.8 79 18 141/70 (93) 95 08/12/17 06:00 22 08/12/17 03:00 89 08/12/17 03:00 97.6 89 22 149/85 (106) 95 08/11/17 23:00 83 08/11/17 23:00 97.8 83 22 128/72 (90) 98 08/11/17 22:00 22 08/11/17 19:00 89 08/11/17 19:00 89 128/78 (95) 08/11/17 19:00 97.9 89 22 128/78 (95) 98 08/11/17 15:00 97.9 98 18 130/71 (90) 92 08/11/17 15:00 98 08/11/17 13:59 18 08/11/17 11:00 85 08/11/17 11:00 98.1 85 18 124/71 (88) 94 I/O 08/11/17 08/11/17 08/11/17 08/12/17 08/12/17 08/12/17 07:00 15:00 23:00 07:00 15:00 23:00 Intake Total 760 ml 48 ml 1440 ml 385 ml Output Total 55 ml 86 ml 175 ml 204 ml 19 ml Balance 705 ml -38 ml 1265 ml 181 ml -19 ml Intake Oral 240 ml 1050 ml 120 ml IV Total 520 ml 48 ml 390 ml 265 ml Output Urine Total 55 ml 86 ml 175 ml 204 ml 19 ml # Bowel Movements 0 Result Diagram: 08/12/17 0530 08/12/17 0530 Imaging Last Impressions Renal Ultrasound 08/10/17 0000 Signed Impressions: CONCLUSION: Satisfactory appearance of transplant kidney. Chest X-Ray 08/09/17 0000 Signed Impressions: CONCLUSION: Central line good position. No pneumothorax identified. Objective Remarks GENERAL: This is a very pleasant, well-nourished, well-developed patient, in no apparent distress. CARDIOVASCULAR: Regular rate and rhythm without murmurs, gallops, or rubs. Left AV fistula with positive bruit and thrill. RESPIRATORY: Clear to auscultation. Breath sounds equal bilaterally. No wheezes , rales, or rhonchi. GASTROINTESTINAL: Abdomen soft, mild tenderness at the surgical site, dressing in place c/d/di, abd nondistended. No guarding. MUSCULOSKELETAL: Extremities without clubbing, cyanosis, or edema. No calf tenderness. NEUROLOGICAL: Awake and alert. Motor and sensory grossly within normal limits. Normal speech. Procedures donor kidney transplant to right iliac fossa by Dr Sheriff and Dr Dennison on 08/09/17 A/P Problem List: (1) ESRD (end stage renal disease) on dialysis ICD Code: N18.6 - End stage renal disease; Z99.2 - Dependence on renal dialysis Assessment and Plan Mr. Posdaas is a 56 year-old male with a history of ESRD secondary to sequential bilateral nephrectomy due to renal cell carcinoma, previous history of hypertension, secondary hyperparathyroidism, hypothyroidism following partial thyroidectomy for benign thyroid nodule, history of colon polyps, and hyperlipidemia who presents to [facility] for renal transplantation by Dr. Sheriff. ESRD S/P donor kidney transplant to right iliac fossa by Dr Sheriff and Dr Dennison on 08/09/17 Hyperkalemia Hematuria, resolving Nausea, resolved Dr. Sheriff ff, continue management per renal transplant team Patient receives hemodialysis . Consult nephrology - Dr. Lucina paz Patient had HD 08/10. Continue HD per nephro recommendations. With hyperkalemia , received cardioprotective meds and emergent HD 08/10. Potassium still elevated , continue Veltassa, no hemodialysis indicated. Antiemetics as need Scherer is discontinued. Plan to monitor urine output and to do bladder scan after each voiding per kidney transplant Dr. Sheriff recommendations. Hypothyroidism - continue home Synthroid Hyperlipidemia - continue home atorvastatin DVT prophylaxis - SCDs/TEDs - chemoprophylaxis per surgeon. Patient with hematuria after surgery hold chemical ppx at this time. Discussed Condition With Patient, nurse Reena Mckinley MD 17, 2018 09:24
[2017-08-12] MEDS ORDERED: [UNRECOGNIZED DRUG - OTHER] XX PRN (09:45)
--- NOTE | 2017-08-12 10:04 | HHI.NPPN ---
Subjective History of Present Illness Patient 56-year-old with bilateral nephrectomy, ESRD who received a kidney transplant offer Additional Remarks Urine output has improved. Hyperkalemia has improved. He feels well. No signs of fluid overload. Review of Systems General Constitutional: Fatigue Objective Data Data 08/12/17 08/13/17 19:00 07:00 Output Total 49 ml Balance -49 ml Output Urine Total 49 ml Vital Signs Date Time Temp Pulse Resp B/P (MAP) Pulse Ox O2 Delivery O2 Flow Rate FiO2 08/12/17 07:00 79 08/12/17 07:00 79 141/70 (93) 08/12/17 07:00 97.8 79 18 141/70 (93) 95 08/12/17 06:00 22 08/12/17 03:00 89 08/12/17 03:00 97.6 89 22 149/85 (106) 95 08/11/17 23:00 83 08/11/17 23:00 97.8 83 22 128/72 (90) 98 08/11/17 22:00 22 08/11/17 19:00 89 08/11/17 19:00 89 128/78 (95) 08/11/17 19:00 97.9 89 22 128/78 (95) 98 08/11/17 15:00 97.9 98 18 130/71 (90) 92 08/11/17 15:00 98 08/11/17 13:59 18 08/11/17 11:00 85 08/11/17 11:00 98.1 85 18 124/71 (88) 94 -: 08/12/17 0530 08/12/17 0530 Physical Exam General Appearance: Well Developed, Well Nourished, No Acute Distress Neck Neck Exam: Neck Supple Pulmonary Resp Exam: Clear Bilaterally, Breath Sounds Equal Cardiology CV Exam: Regular, Normal Sinus Rhythm Gastrointestinal/Abdomen GI Exam: Soft Integumentary Skin Exam: Clear Extremeties Extremities Exam: No Edema Neurologic Neuro Exam: Alert, Awake Assessment/Plan Problem List: (1) Kidney transplant status, cadaveric ICD Codes: Z94.0 - Kidney transplant status Plan: Delayed graft function. Immunosuppressives noted. Oliguric, however there is improvement in urine output. Repeat labs. Dialysis prn. Discussed with Dr. Sheriff. (2) Hyperkalemia ICD Codes: E87.5 - Hyperkalemia Plan: Monitor. Low potassium diet. Dialysis prn. On Veltassa. On Lasix. Yazan Fernández MD Aug 12, 2017 10:04
[2017-08-12] MEDS: TAMSULOSIN HCL 0.4 MG CAP PO SCH (10:27)
[2017-08-12] MEDS ORDERED: ACETAMINOPHEN/HYDROcodone 325 MG/5 MG TAB PO PRN ×2 (11:00)
[2017-08-12] MEDS ORDERED: EPOETIN ALFA 4,000 UNITS/ML VIAL SQ ONE (11:00)
[2017-08-12] MEDS ORDERED: predniSONE 20 MG TAB PO ONE (12:30)
[2017-08-12] MEDS ORDERED: ACETAMINOPHEN 325 MG TAB PO ONE (12:30)
[2017-08-12] MEDS ORDERED: diphenhydrAMINE HCL 50 MG CAP PO ONE (12:30)
[2017-08-12] MEDS ORDERED: ANTITHYMOCYTE GLOB IV-CENTRAL ONE (13:00)
[2017-08-12] MEDS ORDERED: SODIUM CHLORID 0.9% IV-CENTRAL ONE (13:00)
[2017-08-12] MEDS ORDERED: HYDROCORTISONE SOD SUCCINATE 100 MG VIAL ONE (13:09)
[2017-08-12] MEDS ORDERED: EPINEPHrine HCL (1:10,000) 1 MG/10 ML SYRINGE ONE (13:09)
[2017-08-12] MEDS ORDERED: diphenhydrAMINE HCL 50 MG/ML VIAL ONE (13:09)
[2017-08-12] MEDS ORDERED: BISACODYL 10 MG SUPP RECTAL PRN (15:00)
[2017-08-12] MEDS ORDERED: BISACODYL EC 5 MG TABEC PO PRN (15:00)
[2017-08-12] MEDS: ATORVASTATIN 10 MG TAB PO SCH (21:29)
[2017-08-13] VITALS (22 sets, daily range): BP systolic 118–146; BP diastolic 58–88; PULSE 76–99; RESP 15–22; TEMP 97.5–98.5; O2SAT 92–99
[2017-08-13 06:14] LABS: AUTOMATED NEUTROPHIL # 3.7 TH/MM3 (1.8-7.7); BASOPHIL % 0.1 % (0.0-2.0); EOSINOPHIL % 0.1 % (0.0-4.0); HEMATOCRIT 21.1 % (39.0-51.0); HEMOGLOBIN 7.2 GM/DL (13.0-17.0); LYMPH % 0.7 % (9.0-44.0); MEAN CELL VOLUME 89.5 FL (80.0-100.0); MEAN CORPUSCULAR HEMOGLOBIN 30.4 PG (27.0-34.0); MEAN CORPUSCULAR HGB CONC 33.9 % (32.0-36.0); MONO % 8.1 % (0.0-8.0); MONOCYTE # 0.3 TH/MM3 (0-0.9); PLATELET COUNT 96 TH/MM3 (150-450); RED BLOOD COUNT 2.36 MIL/MM3 (4.50-5.90); RED CELL DISTRIBUTION WIDTH 16.1 % (11.6-17.2); WHITE BLOOD COUNT 4.1 TH/MM3 (4.0-11.0)
[2017-08-13] MEDS: TACROLIMUS 1 MG CAP PO SCH ×2 (06:16→18:13)
[2017-08-13] MEDS: LEVOTHYROXINE SODIUM 50 MCG TAB PO SCH (06:16)
[2017-08-13] MEDS: MYCOPHENOLATE MOFETIL 500 MG TAB PO SCH ×2 (06:16→18:12)
[2017-08-13 06:28] LABS: BICARBONATE 22.9 MEQ/L (21.0-32.0); CALCIUM 7.8 MG/DL (8.5-10.1); MAGNESIUM 1.9 MG/DL (1.5-2.5)
[2017-08-13 06:29] LABS: PHOSPHORUS 5.8 MG/DL (2.5-4.9)
[2017-08-13 06:30] LABS: CREATININE 14.68 MG/DL (0.60-1.30)
[2017-08-13] MEDS ORDERED: [UNRECOGNIZED DRUG - OTHER] XX PRN (07:45)
[2017-08-13] MEDS ORDERED: EPOETIN ALFA 4,000 UNITS/ML VIAL SQ ONE (08:15)
[2017-08-13] MEDS ORDERED: PATIROMER CALCIUM SORBITEX 8.4 GM PKT PO ONE (08:15)
--- NOTE | 2017-08-13 08:32 | HHI.PR ---
Subjective Remarks No new c/o. says feels fine.No BM yet. although passing flatus-dulcolax supp Objective Vital Signs Date Time Temp Pulse Resp B/P (MAP) Pulse Ox O2 Delivery O2 Flow Rate FiO2 08/13/17 08:19 99 Nasal Cannula 2.00 08/13/17 06:00 76 08/13/17 05:00 76 08/13/17 04:00 76 08/13/17 03:00 97.5 77 22 121/88 (99) 99 08/13/17 03:00 77 08/13/17 02:00 78 08/13/17 01:00 78 08/13/17 00:00 80 08/12/17 23:00 78 08/12/17 23:00 98.2 78 22 130/72 (91) 100 08/12/17 22:30 100 Nasal Cannula 2.00 08/12/17 22:00 94 08/12/17 21:00 88 08/12/17 20:00 82 08/12/17 19:00 88 08/12/17 19:00 98.3 88 22 115/73 (87) 99 08/12/17 15:00 97.7 84 18 125/67 (86) 100 08/12/17 15:00 84 08/12/17 15:00 97.7 89 18 125/67 (86) 08/12/17 13:59 97.7 84 18 134/76 (95) 08/12/17 11:00 84 08/12/17 11:00 97.7 84 18 134/76 (95) 95 I/O 08/12/17 08/12/17 08/12/17 08/13/17 08/13/17 08/13/17 07:00 15:00 23:00 07:00 15:00 23:00 Intake Total 385 ml 240 ml 860 ml 386 ml Output Total 204 ml 159 ml 190 ml 350 ml Balance 181 ml 81 ml 670 ml 36 ml Intake Oral 120 ml 240 ml 360 ml 120 ml IV Total 265 ml 500 ml 266 ml Output Urine Total 204 ml 159 ml 190 ml 350 ml Bladder Scan Volume Amount 38 ml Result Diagram: 08/13/17 0535 08/13/17 0535 Objective Remarks Resp: CTAB CV: S1S2 Abd: + BS, soft. Min distended. Approp tender. FABIANA dressing dry/intact. Ext: Calves soft NT B Assessment and Plan Problem List: (1) ESRD (end stage renal disease) on dialysis ICD Codes: N18.6 - End stage renal disease; Z99.2 - Dependence on renal dialysis (2) CKD stage 5 secondary to hypertension ICD Codes: I12.0 - Hypertensive chronic kidney disease with stage 5 chronic kidney disease or end stage renal disease; N18.5 - Chronic kidney disease, stage 5 Assessment and Plan CMV+/ EBV+ patient with ESRD due to hypertension. S/p bilateral nephrectomies. Anuric since 2017. Presented for donor renal transplant from a DCD donor. K 5.3. Extra dose of veltassa given. Patient feels well. + flatus. Hgb 7.2. Additional procrit given. 1 mg/kg thymo today.. Possible discharge in next day or so, with plans for outpatient HD as needed. Continue current care. Joe Sheriff Jr., MD Aug 13, 2017 08:32
[2017-08-13] MEDS: CALCIUM CARBONATE 500 MG CHEWABLE TAB CHEW SCH ×2 (08:34→16:04)
[2017-08-13] MEDS: DOCUSATE SODIUM 100 MG CAP PO SCH ×2 (08:35→20:17)
[2017-08-13] MEDS: TAMSULOSIN HCL 0.4 MG CAP PO SCH (08:36)
[2017-08-13] MEDS: PANTOPRAZOLE SOD 40 MG DELAYED RELEASE TAB PO SCH (08:36)
[2017-08-13] MEDS: FUROSEMIDE 100 MG/10 ML VIAL IV PUSH SCH ×2 (08:36→20:18)
[2017-08-13] MEDS ORDERED: SULFAMETHOXAZOLE-TRIMETHOPRIM DS 800-160 MG TAB PO SCH (09:00)
[2017-08-13] MEDS: PATIROMER CALCIUM SORBITEX 16.8 GM PKT PO SCH (09:00)
[2017-08-13] MEDS: NYSTATIN SUSP 500,000 U/5 ML CUP SWISH-SWAL SCH ×4 (09:56→20:17)
--- NOTE | 2017-08-13 11:27 | HHI.NPPN ---
Subjective History of Present Illness Patient 56-year-old with bilateral nephrectomy, ESRD who received a kidney transplant offer Additional Remarks Urine output has improved. Hyperkalemia has improved. He feels well. No signs of fluid overload. Review of Systems General Constitutional: Fatigue Objective Data Data Vital Signs Date Time Temp Pulse Resp B/P (MAP) Pulse Ox O2 Delivery O2 Flow Rate FiO2 08/13/17 11:00 98.4 88 18 130/75 (93) 96 08/13/17 11:00 99 08/13/17 08:19 99 Nasal Cannula 2.00 08/13/17 07:00 98.1 90 18 131/70 (90) 92 08/13/17 07:00 92 08/13/17 06:00 76 08/13/17 05:00 76 08/13/17 04:00 76 08/13/17 03:00 97.5 77 22 121/88 (99) 99 08/13/17 03:00 77 08/13/17 02:00 78 08/13/17 01:00 78 08/13/17 00:00 80 08/12/17 23:00 78 08/12/17 23:00 98.2 78 22 130/72 (91) 100 08/12/17 22:30 100 Nasal Cannula 2.00 08/12/17 22:00 94 08/12/17 21:00 88 08/12/17 20:00 82 08/12/17 19:00 88 08/12/17 19:00 98.3 88 22 115/73 (87) 99 08/12/17 15:00 97.7 84 18 125/67 (86) 100 08/12/17 15:00 84 08/12/17 15:00 97.7 89 18 125/67 (86) 08/12/17 13:59 97.7 84 18 134/76 (95) -: 08/13/17 0535 08/13/17 0535 Physical Exam General Appearance: Well Developed, Well Nourished, No Acute Distress Neck Neck Exam: Neck Supple Pulmonary Resp Exam: Clear Bilaterally, Breath Sounds Equal Cardiology CV Exam: Regular, Normal Sinus Rhythm Gastrointestinal/Abdomen GI Exam: Soft GI Remarks Postsurgical right lower abdominal incision Integumentary Skin Exam: Clear Extremeties Extremities Exam: No Edema Neurologic Neuro Exam: Alert, Awake Assessment/Plan Problem List: (1) Kidney transplant status, cadaveric ICD Codes: Z94.0 - Kidney transplant status Plan: Delayed graft function. Immunosuppressives noted. Oliguric, however there is improvement in urine output. Repeat labs. Dialysis prn. Discussed with Dr. Sheriff. k 5.2 on Veltassa he is doing OK . out pt dialysis planned (2) Hyperkalemia ICD Codes: E87.5 - Hyperkalemia Plan: Monitor. Low potassium diet. Dialysis prn. On Veltassa. On Lasix. Liya Verdugo MD Aug 13, 2017 11:27
[2017-08-13] MEDS ORDERED: ACETAMINOPHEN 325 MG TAB PO ONE (11:30)
[2017-08-13] MEDS ORDERED: methylPREDNISolone SOD SUCC 40 MG/1 ML VIAL IV PUSH ONE (11:30)
[2017-08-13] MEDS ORDERED: diphenhydrAMINE HCL 50 MG CAP PO ONE (11:30)
[2017-08-13] MEDS ORDERED: SODIUM CHLORID 0.9% IV-CENTRAL ONE (12:00)
[2017-08-13] MEDS ORDERED: ANTITHYMOCYTE GLOB IV-CENTRAL ONE (12:00)
--- NOTE | 2017-08-13 13:20 | HHI.PR ---
Subjective Remarks The patient was seen earlier today. He is ambulating in the hallways with his . Says he has some pain at the surgical site however is controlled by medications and he is able to walk. Scherer is removed has very good urine output. No more hematuria. No fever or chills. No nausea vomiting no diarrhea constipation. Potassium still to a higher side receiving Valtassa, hemodialysis is on hold at this time. Objective Vitals Vital Signs Date Time Temp Pulse Resp B/P (MAP) Pulse Ox O2 Delivery O2 Flow Rate FiO2 08/13/17 13:00 97.8 96 16 126/64 (84) 92 08/13/17 12:45 97.9 90 18 129/75 (93) 92 08/13/17 12:30 98.3 86 18 130/73 (92) 92 08/13/17 12:15 86 18 132/71 (91) 94 08/13/17 12:10 97.9 86 18 136/73 (94) 94 08/13/17 11:00 98.4 88 18 130/75 (93) 96 08/13/17 11:00 99 08/13/17 08:19 99 Nasal Cannula 2.00 08/13/17 07:00 98.1 90 18 131/70 (90) 92 08/13/17 07:00 92 08/13/17 06:00 76 08/13/17 05:00 76 08/13/17 04:00 76 08/13/17 03:00 97.5 77 22 121/88 (99) 99 08/13/17 03:00 77 08/13/17 02:00 78 08/13/17 01:00 78 08/13/17 00:00 80 08/12/17 23:00 78 08/12/17 23:00 98.2 78 22 130/72 (91) 100 08/12/17 22:30 100 Nasal Cannula 2.00 08/12/17 22:00 94 08/12/17 21:00 88 08/12/17 20:00 82 08/12/17 19:00 88 08/12/17 19:00 98.3 88 22 115/73 (87) 99 08/12/17 15:00 97.7 84 18 125/67 (86) 100 08/12/17 15:00 84 08/12/17 15:00 97.7 89 18 125/67 (86) 08/12/17 13:59 97.7 84 18 134/76 (95) I/O 08/12/17 08/12/17 08/12/17 08/13/17 08/13/17 08/13/17 07:00 15:00 23:00 07:00 15:00 23:00 Intake Total 385 ml 240 ml 860 ml 386 ml Output Total 204 ml 159 ml 190 ml 350 ml Balance 181 ml 81 ml 670 ml 36 ml Intake Oral 120 ml 240 ml 360 ml 120 ml IV Total 265 ml 500 ml 266 ml Output Urine Total 204 ml 159 ml 190 ml 350 ml Bladder Scan Volume Amount 38 ml Result Diagram: 08/13/17 0535 08/13/17 0535 Imaging Last Impressions Renal Ultrasound 08/10/17 0000 Signed Impressions: CONCLUSION: Satisfactory appearance of transplant kidney. Chest X-Ray 08/09/17 0000 Signed Impressions: CONCLUSION: Central line good position. No pneumothorax identified. Objective Remarks GENERAL: This is a very pleasant, well-nourished, well-developed patient, in no apparent distress. CARDIOVASCULAR: Regular rate and rhythm without murmurs, gallops, or rubs. Left AV fistula with positive bruit and thrill. RESPIRATORY: Clear to auscultation. Breath sounds equal bilaterally. No wheezes , rales, or rhonchi. GASTROINTESTINAL: Abdomen soft, mild tenderness at the surgical site, dressing in place c/d/di, abd nondistended. No guarding. MUSCULOSKELETAL: Extremities without clubbing, cyanosis, or edema. No calf tenderness. NEUROLOGICAL: Awake and alert. Motor and sensory grossly within normal limits. Normal speech. Procedures donor kidney transplant to right iliac fossa by Dr Sheriff and Dr Dennison on 08/09/17 A/P Problem List: (1) ESRD (end stage renal disease) on dialysis ICD Code: N18.6 - End stage renal disease; Z99.2 - Dependence on renal dialysis Assessment and Plan Mr. Posadas is a 56 year-old male with a history of ESRD secondary to sequential bilateral nephrectomy due to renal cell carcinoma, previous history of hypertension, secondary hyperparathyroidism, hypothyroidism following partial thyroidectomy for benign thyroid nodule, history of colon polyps, and hyperlipidemia who presents to [facility] for renal transplantation by Dr. Sheriff. ESRD S/P donor kidney transplant to right iliac fossa by Dr Sheriff and Dr Dennison on 08/09/17 Hyperkalemia Hematuria, resolving Nausea, resolved Dr. Sheriff ff, continue management per renal transplant team Patient receives hemodialysis . Consult nephrology - Dr. Verdugo ff Patient had HD 08/10. Continue HD per nephro recommendations. With hyperkalemia , received cardioprotective meds and emergent HD 08/10. Potassium still elevated , continue Veltassa, no hemodialysis indicated. Antiemetics as need Scherer is discontinued. Plan to monitor urine output and to do bladder scan after each voiding per kidney transplant Dr. Sheriff recommendations. Hypothyroidism - continue home Synthroid Hyperlipidemia - continue home atorvastatin DVT prophylaxis - SCDs/TEDs - chemoprophylaxis per surgeon. Patient with hematuria after surgery hold chemical ppx at this time. Discussed Condition With Patient, nurse, family at bedside Reena Mckinley MD Aug 13, 2017 13:20
--- NOTE | 2017-08-13 13:33 | PHATRASOAP ---
Date/Time: 08/13/17 0558 Pharmacist daily assessment of kidney transplant patient: S: POST RENAL TRANSPLANTATION PHARMACY ASSESSEMENT O: Ht: 5 ft 9 in Wt: 84.600 kg Scr: 14.68 Hgb/Hct: 7.2/21.1 A/P: PATIENT ON OR AT 12:30 OR DAY DOSES OF THE FOLLOWING WERE GIVEN: Solumedrol 500MG X 1 ANTITHYMOCYT 1.5MG/KG IBW (105MG) ANCEF 2GM IV X 1 CELLCEPT 1000MG X 1 GIVEN MD STARTED VELTASSA 16.8MG DAILY BASELINE SCR IS 16.90 CONSULTED WITH MD TO CHANGE ZOFRAN IV TO COMPAZINE IV AND ONLY GIVE ZOFRAN ODT IF NO RESPONSE TO COMPAZINE IV PATIENT ON MORPHIN MATERIALS AND CORROSION ENGINEER AND PERCOCET PO FOR PAIN CONTROL CONSTIPATION PROTOCOL ON BOARD HOME LEVOTHYROXINE RESTARTED LABS ENTERED FOR NEXT 3 DAYS TILL 08/12 - POST OP DAY # 2 PHYSICIAN GAVE TELEPHONE ORDER FOR PREDNISONE 90 MG BY MOUTH ONCE. WE DISCUSSED RELATIVE POTENCY AND PHYSICIAN CONFIRMED DOSE. CELLCEPT CONTINUES. TACROLIMUS CONTINUES. LEVEL PENDING. NO ANTITHYMOCYTE TODAY. VELTASSA CONTINUES. PHYSICIAN STATED NO NAUSEA/VOMITING TODAY. PHYSICIAN STATED PAIN CONTROLLED. PHYSICIAN STATED PLANNED TO START VALGANCICLOVIR, BACTRIM, AND NYSTATIN TOMORROW. PHYSICIAN ORDERED PHOSPHOROUS, MAGNESIUM, CBC, AND BMP THROUGH 08/13. PATIENT CONTINUES LEVOTHYROXINE. 08/12 - POST OP DAY # 3 ANTITHYMOCYTE ADMINISTERED (1 MG/KG). PRENISONE 80 MG ADMINISTERED. CELLCEPT CONTINUES. TACROLIMUS CONTINUES. LEVEL RETURNED LOW. LEVEL WAS AFTER A SINGLE DOSE. VELTASSA CONTINUES. PHYSICIAN STATED VALGANCICLOVIR, BACTRIM, AND NYSTATIN WAS STILL NOT TO BE STARTED. PHYSICIAN ORDERED PHOSPHOROUS, MAGNESIUM, CBC, AND BMP THROUGH 08/13. PATIENT CONTINUES LEVOTHYROXINE POST OP DAY #4 MD DECIDED ON THYMOGLOBULIN 70MG TODAY FOR TOTAL 5MG/KG TO DATE ADVISED TO ADMINISTER SOLUMEDROL WITH EMPHASIS ON EQUIVALENT POTENCY OF SOLUMEDROL AND PREDNISONE IS NOT 1:1 AND ALSO BIOVAILABILITY OF PREDNISONE IN RENALLY IMPAIRED PATIENT CAN BE LOW 50% WHICH MIGHT INDICATE THAT THE PATIENT IS RECIEVING RELATIVELY LOW DOSE OF STEROID. RECOMMENDED TO USE SOLUMEDROL ACCORDING TO PROTOCOL WITH POST-OP DOSE DAY#4 OF SOLUMEDROL 30MG X 1 TODAY. RECOMMENDED AN EXTRA DOSE OF VELTASSA 8.4GM IN ADDITION TO CURRENT DAILY DOSE OF 16.8 FOR TOTAL DOSE TODAY OF 25.2 TO ADDRESS HIGH K LEVEL OF 5.3 TODAY. NOTED THAT PATIENT HAD NO BM AND DULCOLAX PO AND SUPPOSITORY WAS NOT ADMINISTERED AT 72 HOURS POST-OP TO HELP WITH BM,RN HAD BEED NOTIFIED TODAY TO ADMINISTER DULCOLAX TO HELP WITH BM. CONSTIPATION WILL BE ASSESSED IN AM WITH POSSIBLE ADDING OTHER AGENT IF DULCOLAX DID NOT HELP IN BM. VALCYTE / BACTERIM AND NYSTATIN STARTED TODAY VALCYTE RENALLY ADJUSTED TO TWICE WEEKLY FOR CRCL 10ML/MIN TAC LEVEL 08/12=3.3 TACROLIMUS DOSE INCREASED TO 4MG BID CBC / BMP / MG / PO4 AND TAC LEVEL LABS WERE ENTERED FOR NEXT THREE DAYS. CONTINUE CELLCEPT 1000MG PO BID Pharmacist: Fiorella BenitezD Signature on file
[2017-08-13] MEDS: DEXT 5%-NACL 0.45% 1000 ML INJ 1,000 ML IV SCH ×2 (15:45→18:14)
[2017-08-13] MEDS: ATORVASTATIN 10 MG TAB PO SCH (20:18)
[2017-08-14 04:16] VITALS: BP 123/65; PULSE 78; RESP 15; TEMP 98; O2SAT 98
[2017-08-14 05:06] LABS: BICARBONATE 21.2 MEQ/L (21.0-32.0); CALCIUM 8.1 MG/DL (8.5-10.1); MAGNESIUM 1.9 MG/DL (1.5-2.5); PHOSPHORUS 5.7 MG/DL (2.5-4.9)
[2017-08-14 05:12] LABS: AUTOMATED NEUTROPHIL # 1.5 TH/MM3 (1.8-7.7); BASOPHIL % 0.2 % (0.0-2.0); EOSINOPHIL % 0.6 % (0.0-4.0); HEMATOCRIT 21.7 % (39.0-51.0); HEMOGLOBIN 7.3 GM/DL (13.0-17.0); LYMPH % 7.3 % (9.0-44.0); LYMPHOCYTE # 0.1 TH/MM3 (1.0-4.8); MEAN CELL VOLUME 88.5 FL (80.0-100.0); MEAN CORPUSCULAR HEMOGLOBIN 29.8 PG (27.0-34.0); MEAN CORPUSCULAR HGB CONC 33.7 % (32.0-36.0); MONO % 15.5 % (0.0-8.0); MONOCYTE # 0.3 TH/MM3 (0-0.9); NEUT % 76.4 % (16.0-70.0); PLATELET COUNT 110 TH/MM3 (150-450); RED BLOOD COUNT 2.46 MIL/MM3 (4.50-5.90); RED CELL DISTRIBUTION WIDTH 15.8 % (11.6-17.2); WHITE BLOOD COUNT 1.9 TH/MM3 (4.0-11.0)
[2017-08-14 05:25] LABS: CREATININE 14.91 MG/DL (0.60-1.30)
[2017-08-14] MEDS: MYCOPHENOLATE MOFETIL 500 MG TAB PO SCH (06:03)
[2017-08-14] MEDS: LEVOTHYROXINE SODIUM 50 MCG TAB PO SCH (06:03)
[2017-08-14] MEDS: TACROLIMUS 1 MG CAP PO SCH (06:04)
[2017-08-14] MEDS ORDERED: EPOETIN ALFA 10,000 UNITS/ML VIAL SQ ONE (07:00)
[2017-08-14] MEDS ORDERED: Calcium Carbonate Chew CHEW (07:17)
[2017-08-14] MEDS ORDERED: FURO1TAB61 PO (07:17)
[2017-08-14] MEDS ORDERED: HYDR-3516 PO (07:17)
[2017-08-14] MEDS ORDERED: Nystatin Liq SWISH-SWAL (07:17)
[2017-08-14] MEDS ORDERED: PRED20 PO (07:17)
[2017-08-14] MEDS ORDERED: PANT40TA3 PO (07:17)
[2017-08-14] MEDS ORDERED: MYCO500 PO (07:17)
[2017-08-14] MEDS ORDERED: TAMS5CAP PO (07:17)
[2017-08-14] MEDS ORDERED: VALG450 PO (07:17)
[2017-08-14] MEDS ORDERED: SULF1TAB23 PO (07:17)
[2017-08-14] MEDS ORDERED: PATI1POW3 PO (07:17)
[2017-08-14] MEDS ORDERED: TACR1 PO (07:17)
[2017-08-14 07:53] LABS: LYMPHOCYTES 5 % (9-44); MONOCYTES 5 % (0-8); NEUTROPHIL # MANUAL DIFF 1.7 TH/MM3 (1.8-7.7); POLYS (SEG NEUTROPHILS) 90 % (16-70)
[2017-08-14 07:54] LABS: OVALOCYTES 1+ (NORMAL)
[2017-08-14 08:15] VITALS: BP 137/75; PULSE 77; PULSE 81; RESP 18; TEMP 97.8; O2SAT 95
--- NOTE | 2017-08-14 08:48 | HHI.PR ---
Subjective Remarks Feels better she is ambulating in the room without any problems in the hallways. Less pain. Dressing was changed by Dr. Sheriff no problem with urination. Urine is clear no blood in it. No fever or chills. No pain at this time. Objective Vitals Vital Signs Date Time Temp Pulse Resp B/P (MAP) Pulse Ox O2 Delivery O2 Flow Rate FiO2 08/14/17 04:16 98.0 78 15 123/65 (84) 98 08/14/17 04:16 78 08/13/17 23:31 83 08/13/17 23:31 97.9 86 15 127/77 (94) 98 08/13/17 19:44 98.1 83 17 132/75 (94) 97 08/13/17 19:00 83 08/13/17 17:00 98.3 89 18 137/66 (89) 96 08/13/17 16:00 98.1 95 18 146/73 (97) 94 08/13/17 15:00 98.5 88 18 143/75 (97) 92 08/13/17 15:00 92 08/13/17 15:00 98.5 88 18 143/75 (97) 92 08/13/17 14:00 98.2 83 16 118/58 (78) 94 08/13/17 13:00 97.8 96 16 126/64 (84) 92 08/13/17 12:45 97.9 90 18 129/75 (93) 92 08/13/17 12:30 98.3 86 18 130/73 (92) 92 08/13/17 12:15 86 18 132/71 (91) 94 08/13/17 12:10 97.9 86 18 136/73 (94) 94 08/13/17 11:00 98.4 88 18 130/75 (93) 96 08/13/17 11:00 99 I/O 08/13/17 08/13/17 08/13/17 08/14/17 08/14/17 08/14/17 07:00 15:00 23:00 07:00 15:00 23:00 Intake Total 386 ml 720 ml 200 ml Output Total 350 ml 426 ml 550 ml Balance 36 ml 294 ml -350 ml Intake Oral 120 ml 720 ml 200 ml IV Total 266 ml Output Urine Total 350 ml 425 ml 550 ml Stool Total 1 ml # Bowel Movements 3 Result Diagram: 08/14/17 0410 08/14/17 0410 Imaging Last Impressions Renal Ultrasound 08/10/17 0000 Signed Impressions: CONCLUSION: Satisfactory appearance of transplant kidney. Chest X-Ray 08/09/17 0000 Signed Impressions: CONCLUSION: Central line good position. No pneumothorax identified. Objective Remarks GENERAL: This is a very pleasant, well-nourished, well-developed patient, in no apparent distress. CARDIOVASCULAR: Regular rate and rhythm without murmurs, gallops, or rubs. Left AV fistula with positive bruit and thrill. RESPIRATORY: Clear to auscultation. Breath sounds equal bilaterally. No wheezes , rales, or rhonchi. GASTROINTESTINAL: Abdomen soft, mild tenderness at the surgical site, dressing in place c/d/di, abd nondistended. No guarding. MUSCULOSKELETAL: Extremities without clubbing, cyanosis, or edema. No calf tenderness. NEUROLOGICAL: Awake and alert. Motor and sensory grossly within normal limits. Normal speech. Procedures donor kidney transplant to right iliac fossa by Dr Sheriff and Dr Dennison on 08/09/17 A/P Problem List: (1) ESRD (end stage renal disease) on dialysis ICD Code: N18.6 - End stage renal disease; Z99.2 - Dependence on renal dialysis Assessment and Plan Mr. Posadas is a 56 year-old male with a history of ESRD secondary to sequential bilateral nephrectomy due to renal cell carcinoma, previous history of hypertension, secondary hyperparathyroidism, hypothyroidism following partial thyroidectomy for benign thyroid nodule, history of colon polyps, and hyperlipidemia who presents to [facility] for renal transplantation by Dr. Sheriff. ESRD S/P donor kidney transplant to right iliac fossa by Dr Sheriff and Dr Dennison on 08/09/17 Hyperkalemia Hematuria, resolving Nausea, resolved Dr. Sheriff ff, continue management per renal transplant team Patient receives hemodialysis [id number]. Consult nephrology - Dr. Lucina paz Patient had HD 08/10. Continue HD per nephro recommendations. With hyperkalemia , received cardioprotective meds and emergent HD 08/10. Potassium still elevated , continue Veltassa, no hemodialysis indicated. Antiemetics as need Scherer is discontinued. Plan to monitor urine output and to do bladder scan after each voiding per kidney transplant Dr. Jaziel recommendations. Hypothyroidism - continue home Synthroid Hyperlipidemia - continue home atorvastatin DVT prophylaxis - SCDs/TEDs - chemoprophylaxis per surgeon. Patient with hematuria after surgery hold chemical ppx at this time. Discussed Condition With Patient, nurse, family at bedside Patient improving clear by consultants for discharge. Plan to discharge later today after all arrangements are done. Reena Mckinley MD Aug 14, 2017 08:48
[2017-08-14] MEDS: PATIROMER CALCIUM SORBITEX 16.8 GM PKT PO SCH (09:00)
[2017-08-14] MEDS ORDERED: predniSONE 20 MG TAB PO SCH (09:00)
[2017-08-14] MEDS: CALCIUM CARBONATE 500 MG CHEWABLE TAB CHEW SCH (09:06)
[2017-08-14] MEDS: NYSTATIN SUSP 500,000 U/5 ML CUP SWISH-SWAL SCH ×2 (09:06→13:00)
[2017-08-14] MEDS: PANTOPRAZOLE SOD 40 MG DELAYED RELEASE TAB PO SCH (09:06)
[2017-08-14] MEDS: DOCUSATE SODIUM 100 MG CAP PO SCH (09:06)
[2017-08-14] MEDS: TAMSULOSIN HCL 0.4 MG CAP PO SCH (09:06)
[2017-08-14] MEDS: FUROSEMIDE 100 MG/10 ML VIAL IV PUSH SCH (09:07)
[2017-08-14 09:34] VITALS: PULSE 85
--- NOTE | 2017-08-14 09:47 | PHATRANEDU ---
Date/Time: 08/14/17 0944 Pharmacist Patient education: Pharmacist reviewed discharge medications with physician to ensure appropriate dosing regimen. Patient had been educated on his medications, patient do not currently have any questions for the pharmacist. Pharmacist: Fiorella Segura PharmD Signature on file
[2017-08-14 10:21] VITALS: PULSE 87
--- NOTE | 2017-08-14 10:35 | HHI.DS ---
Discharge Summary Admission Date Aug 09, 2017 at 03:24 Discharge Date: Aug 14, 2017 Admitting Diagnosis ESRD/Renal Transplant . (1) ESRD (end stage renal disease) on dialysis ICD Code: N18.6 - End stage renal disease; Z99.2 - Dependence on renal dialysis Procedures donor kidney transplant to right iliac fossa by Dr Sheriff and Dr Dennison on 08/09/17 Brief History - From Admission Mr. Posadas is a 56 year-old male with a history of ESRD secondary to sequential bilateral nephrectomy due to renal cell carcinoma, previous history of hypertension, secondary hyperparathyroidism, hypothyroidism following partial thyroidectomy for benign thyroid nodule, history of colon polyps, and hyperlipidemia who presents to [facility] for possible renal transplantation by Dr. Sheriff. The patient is seen in his hospital room with his at the bedside. He denies any pain, chest pain, shortness of breath, fevers, chills, nausea, vomiting, or diarrhea. He is eagerly awaiting news of whether or not the transplantation is going to proceed. CBC/BMP: 08/14/17 0410 08/14/17 0410 Significant Findings Laboratory Tests Test 08/11/17 15:55 08/12/17 05:30 08/13/17 05:35 08/14/17 04:10 Blood Urea Nitrogen 70 MG/DL (7-18) 76 MG/DL (7-18) 91 MG/DL (7-18) 102 MG/DL (7-18) Creatinine 14.03 MG/DL (0.60-1.30) 14.47 MG/DL (0.60-1.30) 14.68 MG/DL (0.60-1.30) 14.91 MG/DL (0.60-1.30) Random Glucose 136 MG/DL (74-106) 138 MG/DL (74-106) 135 MG/DL (74-106) Sodium Level 135 MEQ/L (136-145) 130 MEQ/L (136-145) 131 MEQ/L (136-145) 132 MEQ/L (136-145) Chloride Level 95 MEQ/L (98-107) 94 MEQ/L (98-107) 96 MEQ/L (98-107) 95 MEQ/L (98-107) Estimat Glomerular Filtration Rate 4 ML/MIN (>89) 4 ML/MIN (>89) 4 ML/MIN (>89) 4 ML/MIN (>89) Red Blood Count 2.57 MIL/MM3 (4.50-5.90) 2.36 MIL/MM3 (4.50-5.90) 2.46 MIL/MM3 (4.50-5.90) Hemoglobin 7.7 GM/DL (13.0-17.0) 7.2 GM/DL (13.0-17.0) 7.3 GM/DL (13.0-17.0) Hematocrit 22.8 % (39.0-51.0) 21.1 % (39.0-51.0) 21.7 % (39.0-51.0) Platelet Count 98 TH/MM3 (150-450) 96 TH/MM3 (150-450) 110 TH/MM3 (150-450) Neutrophils (%) (Auto) 95.1 % (16.0-70.0) 91.0 % (16.0-70.0) 76.4 % (16.0-70.0) Lymphocytes (%) (Auto) 0.5 % (9.0-44.0) 0.7 % (9.0-44.0) 7.3 % (9.0-44.0) Lymphocytes # (Auto) 0.0 TH/MM3 (1.0-4.8) 0.0 TH/MM3 (1.0-4.8) 0.1 TH/MM3 (1.0-4.8) Platelet Estimate LOW (NORMAL) LOW (NORMAL) LOW (NORMAL) Phosphorus Level 5.1 MG/DL (2.5-4.9) 5.8 MG/DL (2.5-4.9) 5.7 MG/DL (2.5-4.9) Tacrolimus (Prograf) Level 3.3 NG/ML (5.0-20.0) 2.2 NG/ML (5.0-20.0) Monocytes (%) (Auto) 8.1 % (0.0-8.0) 15.5 % (0.0-8.0) Calcium Level 7.8 MG/DL (8.5-10.1) 8.1 MG/DL (8.5-10.1) Potassium Level 5.3 MEQ/L (3.5-5.1) White Blood Count 1.9 TH/MM3 (4.0-11.0) Neutrophils # (Auto) 1.5 TH/MM3 (1.8-7.7) Neutrophils % (Manual) 90 % (16-70) Lymphocytes % 5 % (9-44) Neutrophils # (Manual) 1.7 TH/MM3 (1.8-7.7) Ovalocytes 1+ (NORMAL) Anion Gap 16 MEQ/L (5-15) PE at Discharge GENERAL: This is a very pleasant, well-nourished, well-developed patient, in no apparent distress. CARDIOVASCULAR: Regular rate and rhythm without murmurs, gallops, or rubs. Left AV fistula with positive bruit and thrill. RESPIRATORY: Clear to auscultation. Breath sounds equal bilaterally. No wheezes , rales, or rhonchi. GASTROINTESTINAL: Abdomen soft, mild tenderness at the surgical site, dressing in place c/d/di, abd nondistended. No guarding. MUSCULOSKELETAL: Extremities without clubbing, cyanosis, or edema. No calf tenderness. NEUROLOGICAL: Awake and alert. Motor and sensory grossly within normal limits. Normal speech. Pt Condition on Discharge: Stable Discharge Disposition: Discharge Home Discharge Time: > 30 minutes Discharge Instructions DIET: Follow Instructions for: Renal Failure Diet Activities you can perform: Regular-No Restrictions Reena Mckinley MD Aug 14, 2017 10:35
[2017-08-14 11:12] VITALS: BP 141/71; PULSE 84; PULSE 90; RESP 18; TEMP 97.7; O2SAT 96
[2017-08-14 12:31] VITALS: PULSE 88
--- NOTE | 2017-08-14 13:10 | HHI.NPPN ---
Subjective History of Present Illness Patient 56-year-old with bilateral nephrectomy, ESRD who received a kidney transplant offer Additional Remarks Urine output has improved. Hyperkalemia has improved. He feels well. No signs of fluid overload. Review of Systems General Constitutional: Fatigue Objective Data Data Vital Signs Date Time Temp Pulse Resp B/P (MAP) Pulse Ox O2 Delivery O2 Flow Rate FiO2 08/14/17 12:31 88 08/14/17 11:12 97.7 90 18 141/71 (94) 96 08/14/17 11:12 84 08/14/17 10:21 87 08/14/17 09:34 85 08/14/17 08:15 97.8 81 18 137/75 (95) 95 08/14/17 08:15 77 08/14/17 04:16 98.0 78 15 123/65 (84) 98 08/14/17 04:16 78 08/13/17 23:31 83 08/13/17 23:31 97.9 86 15 127/77 (94) 98 08/13/17 19:44 98.1 83 17 132/75 (94) 97 08/13/17 19:00 83 08/13/17 17:00 98.3 89 18 137/66 (89) 96 08/13/17 16:00 98.1 95 18 146/73 (97) 94 08/13/17 15:00 98.5 88 18 143/75 (97) 92 08/13/17 15:00 92 08/13/17 15:00 98.5 88 18 143/75 (97) 92 08/13/17 14:00 98.2 83 16 118/58 (78) 94 -: 08/14/17 0410 08/14/17 0410 Physical Exam General Appearance: Well Developed, Well Nourished, No Acute Distress Neck Neck Exam: Neck Supple Pulmonary Resp Exam: Clear Bilaterally, Breath Sounds Equal Cardiology CV Exam: Regular, Normal Sinus Rhythm Gastrointestinal/Abdomen GI Exam: Soft GI Remarks Postsurgical right lower abdominal incision Integumentary Skin Exam: Clear Extremeties Extremities Exam: No Edema Neurologic Neuro Exam: Alert, Awake Assessment/Plan Problem List: (1) Kidney transplant status, cadaveric ICD Codes: Z94.0 - Kidney transplant status Plan: Delayed graft function. Immunosuppressives noted. Oliguric, however there is improvement in urine output. Labs. Cr 14.9 Dialysis prn. on [place]ro 4 mg q 12, MMF 1g bid, Prednisone 20 mg k 4.6 on Veltassa he is doing OK . out pt dialysis planned PRN bases [facility] [employer] Dr. Herndon was informed (2) Hyperkalemia ICD Codes: E87.5 - Hyperkalemia Plan: Monitor. Low potassium diet. Dialysis prn. On Veltassa. On Lasix. Liya Verdugo MD Aug 14, 2017 13:10
--- NOTE | 2017-08-15 09:52 | HHI.PR ---
Subjective Remarks No new c/o. says feels fine.3 BMs overnight Objective Vital Signs Date Time Temp Pulse Resp B/P (MAP) Pulse Ox O2 Delivery O2 Flow Rate FiO2 08/14/17 12:31 88 08/14/17 11:12 97.7 90 18 141/71 (94) 96 08/14/17 11:12 84 08/14/17 10:21 87 I/O 08/14/17 08/14/17 08/14/17 08/15/17 08/15/17 08/15/17 07:00 15:00 23:00 07:00 15:00 23:00 Intake Total 200 ml 360 ml Output Total 550 ml 410 ml Balance -350 ml -50 ml Intake Oral 200 ml 360 ml Output Urine Total 550 ml 410 ml # Bowel Movements 3 0 Result Diagram: 08/14/1740908/14/17409 Objective Remarks Resp: CTAB CV: S1S2 Abd: + BS, soft. Min distended. Approp tender.Wound clean/ dry/intact. with no signs of infection Ext: Calves soft NT B Assessment and Plan Problem List: (1) ESRD (end stage renal disease) on dialysis ICD Codes: N18.6 - End stage renal disease; Z99.2 - Dependence on renal dialysis (2) CKD stage 5 secondary to hypertension ICD Codes: I12.0 - Hypertensive chronic kidney disease with stage 5 chronic kidney disease or end stage renal disease; N18.5 - Chronic kidney disease, stage 5 Assessment and Plan Of note: Patient was seen on 08/14/2017 at around 06:30 AM. The information in this note was derived from multidisciplinary rounds done at that time. But the actual documentation is not done until today 08/15/17 around 09:52 AM CMV+/ EBV+ patient with ESRD due to hypertension. S/p bilateral nephrectomies. Anuric since 2016. Presented for donor renal transplant from a DCD donor. normokalemic-on veltassa. Patient feels well. + flatus. Hgb remains in 7 range. Additional procrit given. Discharge today, with plans for outpatient HD as needed. Joe Sheriff Jr., MD Aug 15, 2017 09:52
== END 2017-08-14 14:38 | disposition home or self-care (01) | DRG 652 ==
LOC: HCIN 03:24 → HCPC 13:28 → HCVI 16:57 → HCPC 08-12 10:55
PROVIDERS: ADMIT Hospitalist; ATTEND Hospitalist
PROC: 0TY00Z0 Transplantation of Right Kidney, Allogeneic, Open Approach (ICD-10-PCS; principal; 2017-08-09 11:52)
PROC: 5A1D70Z Performance of Urinary Filtration, Intermittent, Less than 6 Hours Per Day (ICD-10-PCS; 2017-08-10)
DX: I12.0 Hypertensive chronic kidney disease with stage 5 chronic kidney disease or end stage renal disease (principal); N25.81 Secondary hyperparathyroidism of renal origin; N18.6 End stage renal disease; E87.5 Hyperkalemia; Z90.5 Acquired absence of kidney; E89.0 Postprocedural hypothyroidism; E78.5 Hyperlipidemia, unspecified; D64.9 Anemia, unspecified; R31.9 Hematuria, unspecified; R11.0 Nausea; Z99.2 Dependence on renal dialysis; Z86.010 Personal history of colon polyps; Z85.528 Personal history of other malignant neoplasm of kidney
CPT/HCPCS: 71045; 71046; 76776; 80048; 80053; 80074; 80197; 82948; 83540; 83550; 83735; 84100; 84132; 84155; 85007; 85025; 85027; 85610; 85730; 86850; 86900; 86901; 86920; 90935; 93005; 94150; 96374; C2617; J0171; J0690; J1200; J1580; J1644; J1720; J1815; J1940; J2150; J2270; J2370; J2405; J2710; J2920; J2930; J3010; J7040; J7507; J7511; J7512; J7517; P9045; Q0163; Q4081